=== PATIENT | female | born 1980 | race Caucasian/White ===

== ENCOUNTER 2016-07-21 13:35 | Inpatient (IN) | payer OTHER ==
[2016-07-21 13:35] VITALS: BMI 35.7
[2016-07-21 14:37] LABS: RBC URINE 2 /hpf (0-3); URINE BILIRUBIN NEGATIVE (NEGATIVE); URINE BLOOD MODERATE (NEGATIVE); URINE COLOR YELLOW (YELLOW); URINE GLUCOSE (UA) NEG (Normal); URINE KETONE NEGATIVE (NEGATIVE); URINE LEUKOCYTE ESTERASE NEG Leu/uL (Negative); URINE PROTEIN NEGATIVE (NEGATIVE); URINE UROBILINOGEN 0.2-1.0 mg/dL (0.2-1.0); WBC URINE 1 /hpf (0-5)
--- NOTE | 2016-07-21 14:58 | CT ---
PROCEDURE: CT HEAD WITHOUT CONTRAST. HISTORY: Fever, h/o pseudotumor cerebri COMPARISON: 07/29/2007 TECHNIQUE: Axial computed tomography images were obtained through the head/brain without intravenous contrast. Radiation dose: Total exam DLP = 791.76 mGy-cm. This CT exam was performed using one or more of the following dose reduction techniques: Automated exposure control, adjustment of the mA and/or kV according to patient size, and/or use of iterative reconstruction technique. FINDINGS: HEMORRHAGE: No intracranial hemorrhage. BRAIN: No mass effect or edema. Mild bilateral frontal atrophy, slightly greater than expected for patient age. No evidence of acute infarct. VENTRICLES: Unremarkable. No hydrocephalus. CALVARIUM: Unremarkable. PARANASAL SINUSES: Unremarkable as visualized. No significant inflammatory changes. MASTOID AIR CELLS: Unremarkable as visualized. No inflammatory changes. OTHER FINDINGS: None. IMPRESSION: No intracranial mass, hemorrhage or evidence of acute infarct. Mild bilateral frontal atrophy, slightly greater than expected for patient age. Otherwise unremarkable examination.
--- NOTE | 2016-07-21 14:59 | ED PDOC ---
HPI: CCC, URI, Sore Throat Time Seen by Provider: 07/21/16 14:06 Chief Complaint (Nursing): Flu-like Symptoms Chief Complaint (Provider): Flu-like Symptoms History Per: Patient History/Exam Limitations: no limitations Onset/Duration Of Symptoms: Days Current Symptoms Are (Timing): Still Present Location Of Pain: Diffuse Myalgias, Headache Sick Contacts (Context): None Associated Symptoms: Vomiting Severity: Mild Additional Complaint(s): Patient is a 35 year old female who presents to ED for evaluation of vomiting, runny nose, diffuse malagia and fever for 2 days. 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 Denies photophobia, neck stiffness, rash or vision changes. Past Medical History Reviewed: Historical Data, Nursing Documentation, Vital Signs Vital Signs: Last Vital Signs Temp 100.9 F H 07/21/16 20:13 Pulse 85 07/21/16 19:06 Resp 16 07/21/16 19:06 BP 126/87 07/21/16 19:06 Pulse Ox 100 07/21/16 19:52 - Medical History PMH: Anxiety, Asthma (RARELY USES INHALER), Depression, Migraine Denies: Chronic Kidney Disease - Surgical History Surgical History: Tonsillectomy - Family History Family History: States: Diabetes, Hypertension - Living Arrangements Living Arrangements: With Family - Social History Current smoker - smoking cessation education provided: No Alcohol: None Drugs: Denies - Home Medications Home Medications: Ambulatory Orders Medication Instructions Recorded Spironolactone [Aldactone] 12.5 mg PO BID 07/21/16 - Allergies Allergies/Adverse Reactions: Allergies Allergy/AdvReac Type Severity Reaction Status Date / Time erythromycin base Allergy Severe ANAPHYLAXIS Verified 04/23/15 09:42 Review of Systems ROS Statement: Except As Marked, All Systems Reviewed And Found Negative Constitutional: Positive for: Fever, Chills. Negative for: Weakness Eyes: Negative for: Vision Change ENT: Positive for: Nose Discharge Cardiovascular: Negative for: Chest Pain, Palpitations Respiratory: Positive for: Cough. Negative for: Shortness of Breath Gastrointestinal: Positive for: Vomiting Skin: Negative for: Rash Neurological: Positive for: Headache. Negative for: Weakness, Numbness Physical Exam - Reviewed Nursing Documentation Reviewed: Yes Vital Signs Reviewed: Yes - Physical Exam Appears: Positive for: Non-toxic, No Acute Distress Skin: Positive for: Normal Color, Warm. Negative for: Rash Eye Exam: Positive for: Normal appearance, PERRL ENT: Negative for: Nasal Congestion, Pharyngeal Erythema, Tonsillar Exudate Neck: Positive for: Normal, Painless ROM Cardiovascular/Chest: Positive for: Regular Rate, Rhythm. Negative for: Murmur Respiratory: Positive for: Normal Breath Sounds. Negative for: Respiratory Distress Gastrointestinal/Abdominal: Positive for: Normal Exam. Negative for: Tenderness Back: Positive for: Normal Inspection Extremity: Positive for: Normal ROM. Negative for: Pedal Edema Neurologic/Psych: Positive for: Alert, Oriented. Negative for: Motor/Sensory Deficits - Laboratory Results Result Diagrams: 07/21/16 14:45 07/21/16 14:45 - ECG O2 Sat by Pulse Oximetry: 100 (RA) Pulse Ox Interpretation: Normal - Radiology X-Ray: Read By Radiologist X-Ray Interpretation: No Acute Disease - CT Scan/US CT head Other Rad Studies (CT/US): Radiology Report Reviewed (No intracranial mass, hemorrhage or evidence of acute infarct. Mild bilateral frontal atrophy, slightly greater than expected for patient age. Otherwise unremarkable examination.) Medical Decision Making Medical Decision Making: Time: 1405 Initial impression: Viral illness Initial plan: -- VBG -- CT-head -- CMP -- Urine dip -- CBC -- PT/PTT -- CXR -- Morphine and Zofran -- Blood culture -- Flu swab -- U/A Time: 1500 Patient is being placed into ED observation pending labs and blood work. See ED obs note for further updates. 21:35 Dr. Rodriguez contacted with CSF results, no privileges at [facility] but can call for consult. Scribe Attestation: Documented by Erika Mckenna acting as a scribe for Xiomy De Leon MD MD Scribe Attestation: All medical record entries made by the Scribe were at my direction and personally dictated by me. I have reviewed the chart and agree that the record accurately reflects my personal performance of the history, physical exam, medical decision making, and the department course for this patient. I have also personally directed, reviewed, and agree with the discharge instructions and disposition. ED OBSERVATION Date of observation admission: 07/21/16 Time of observation admission: 15:00 - Observation admission statement Patient is being placed in observation because:: Need for serial examination to determine stability for discharge. - Goals of Observation Goals of observation are:: resolution of symptoms. Disposition - Clinical Impression Clinical Impression: Intractable headache, Fever - Patient ED Disposition Is Patient to be Admitted: Yes - Disposition Disposition Time: 19:47 Condition: STABLE - Pt Status Changed To: Hospital Disposition Of: Inpatient - Admit Certification Admit to Inpatient:: After my assessment, the patient will require hospitalization for at least two midnights. This is because of the severity of symptoms shown, intensity of services needed, and/or the medical risk in this patient being treated as an outpatient. - POA Present On Arrival: None Lumbar Puncture - Time Out Time Out: Patient ID confirmed, Sterile procedures obs. - Consent obtained Consent obtained: Written - Performed by Performed by: Mid-level Provider - Indications Indication(s): Suspected menigitis - Contraindications Contraindications: None - Patient Position Patient position: Sitting - Local Anesthetic Location: L4/L5 Opening pressure cm CSF: 29 cm - Fluid Appearance Fluid Appearance: Clear Amount Drained ml: 8 - Post-procedure Post-procedure: No leak/bld from LP site - CSF Studies CSF Studies: Cell count/diff, Glucose, Protein, LDH, Gram stain, culture/ sensitivity, Antigens - Complications Complications: None - Patient tolerated procedure Patient tolerated procedure: Well
[2016-07-21 15:03] LABS: VENOUS BLOOD GAS MODE RA; VENOUS BLOOD GAS PCO2 43 mmHg (40-60); VENOUS BLOOD PH 7.38 (7.32-7.43)
[2016-07-21 15:10] LABS: BASO # 0.1 K/uL (0.0-0.2); BASO % 0.7 % (0.0-2.0); EOS # 0.3 K/uL (0.0-0.7); EOS % 2.7 % (0.0-4.0); HEMATOCRIT 42.9 % (34.0-47.0); LYMPH # 1.1 K/uL (1.0-4.3); LYMPH % 9.3 % (20.0-40.0); MEAN CELL VOLUME 84.6 fl (81.0-99.0); MEAN CORPUSCULAR HEMOGLOBIN 28.5 pg (27.0-31.0); MEAN CORPUSCULAR HGB CONC 33.7 g/dL (33.0-37.0); MEAN PLATELET VOLUME 8.8 fl (7.2-11.7); MONO % 8.3 % (0.0-10.0); NEUT # 9.4 K/uL (1.8-7.0); NRBC % 0.1 % (0.0-0.0); PLATELET COUNT 265 K/uL (130-400); RED CELL DISTRIBUTION WIDTH 12.6 % (11.5-14.5); WHITE BLOOD COUNT 11.9 K/uL (4.8-10.8)
[2016-07-21 15:15] LABS: ALB/GLOB RATIO 1.5 (1.0-2.1); ALKALINE PHOSPHATASE 66 U/L (38-126); ALT/SGPT 38 U/L (9-52); AST/SGOT 25 U/L (14-36); BILIRUBIN,TOTAL 0.5 mg/dl (0.2-1.3); BLOOD UREA NITROGEN 12 mg/dl (7-17); CALCIUM 9.1 mg/dL (8.4-10.2); CARBON DIOXIDE 23 mmol/L (22-30); CHLORIDE 104 mmol/L (98-107); GFR AFRICAN-AMERICAN > 60; GLUCOSE,RANDOM 90 mg/dL (65-105); POTASSIUM 4.1 MMOL/L (3.6-5.0); SODIUM 139 mmol/l (132-148); TOTAL PROTEIN 8.1 G/DL (6.3-8.2)
--- NOTE | 2016-07-21 15:18 | RAD ---
HISTORY: Fever COMPARISON: 08/28/2011 TECHNIQUE: Chest PA and lateral FINDINGS: LUNGS: No active pulmonary disease. PLEURA: No significant pleural effusion identified. No pneumothorax apparent. CARDIOVASCULAR: Normal. OSSEOUS STRUCTURES: No significant abnormalities. VISUALIZED UPPER ABDOMEN: Normal. OTHER FINDINGS: None. IMPRESSION: No active disease.
[2016-07-21 15:29] LABS: PARTIAL THROMBOPLASTIN TIME 29.6 Seconds (25.6-37.1)
[2016-07-21 15:37] LABS: EOSINOPHIL 2 % (0-7); NEUTROPHIL 77 % (42-75); REACTIVE LYMPHOCYTES 1 % (0-0); TOTAL CELLS COUNTED 100
[2016-07-21] MEDS ORDERED: Lidocaine 1% Inj (20ml) ONE (16:12)
[2016-07-21] MEDS ORDERED: Lidocaine 1% Inj (20ml) IJ STA (16:17)
[2016-07-21] MEDS ORDERED: Vancomycin 1 g Inj ONE (16:49)
[2016-07-21] MEDS ORDERED: cefTRIAXone (Rocephin) 1 gm Inj ONE (16:49)
[2016-07-21] MEDS ORDERED: DiphenhydrAMINE 50 mg/ml Inj IVP STA (17:19)
[2016-07-21 17:46] LABS: FLUID TYPE SPINAL FLUID
[2016-07-21 18:53] LABS: CSF COMMENT CELLS NOT SEEN.; CSF TOTAL COUNT 0 (0-0)
[2016-07-21] MEDS: cefTRIAXone 2 GM in Sodium Chloride 0.9% 100 ML IVPB SCH (20:10)
[2016-07-22 00:53] LABS: RBC URINE 3 /hpf (0-3); URINE BACTERIA RARE (<OCC); URINE BILIRUBIN NEGATIVE (NEGATIVE); URINE COLOR YELLOW (YELLOW); URINE GLUCOSE (UA) NEG (Normal); URINE KETONE NEGATIVE (NEGATIVE); URINE LEUKOCYTE ESTERASE NEG Leu/uL (Negative); URINE PROTEIN NEGATIVE (NEGATIVE); URINE UROBILINOGEN 0.2-1.0 mg/dL (0.2-1.0); WBC URINE 3 /hpf (0-5)
[2016-07-22 00:56] LABS: URINE BLOOD TRACE (NEGATIVE)
[2016-07-22 07:21] LABS: HEMATOCRIT 41.5 % (34.0-47.0); MEAN CELL VOLUME 85.8 fl (81.0-99.0); MEAN CORPUSCULAR HEMOGLOBIN 28.7 pg (27.0-31.0); MEAN CORPUSCULAR HGB CONC 33.4 g/dL (33.0-37.0); RED CELL DISTRIBUTION WIDTH 12.9 % (11.5-14.5); WHITE BLOOD COUNT 6.8 K/uL (4.8-10.8)
[2016-07-22 07:29] LABS: ALB/GLOB RATIO 1.3 (1.0-2.1); ALKALINE PHOSPHATASE 53 U/L (38-126); ALT/SGPT 36 U/L (9-52); AST/SGOT 23 U/L (14-36); BILIRUBIN,TOTAL 0.4 mg/dl (0.2-1.3); BLOOD UREA NITROGEN 10 mg/dl (7-17); CALCIUM 8.6 mg/dL (8.4-10.2); CARBON DIOXIDE 25 mmol/L (22-30); CHLORIDE 103 mmol/L (98-107); GFR AFRICAN-AMERICAN > 60; GLUCOSE,RANDOM 90 mg/dL (65-105); POTASSIUM 3.8 MMOL/L (3.6-5.0); SODIUM 140 mmol/l (132-148); TOTAL PROTEIN 7.4 G/DL (6.3-8.2)
--- NOTE | 2016-07-22 09:19 | CP.PCM.HP ---
History of Present Illness - History of Present Illness History of Present Illness: Patient is a 35 year old female who presents to ED for evaluation of vomiting, runny nose, diffuse malagia and fever for 2 days. 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 Denies photophobia, neck stiffness, rash or vision changes. Present on Admission - Present on Admission Any Indicators Present on Admission: Yes Past Patient History - Infectious Disease Hx of Infectious Diseases: None (pseudotumor cerebri) - Past Medical History & Family History Past Medical History?: Yes - Past Social History Smoking Status: Never Smoked - CARDIAC Hx Cardiac Disorders: No - PULMONARY Hx Respiratory Disorders: Yes Hx Asthma: Yes (RARELY USES INHALER) - NEUROLOGICAL Hx Neurological Disorder: Yes Hx Migraine: Yes Other/Comment: Pseudotumor cerebri - HEENT Hx HEENT Problems: No - RENAL Hx Chronic Kidney Disease: No - ENDOCRINE/METABOLIC Hx Endocrine Disorders: No - HEMATOLOGICAL/ONCOLOGICAL Hx Blood Disorders: No - INTEGUMENTARY Hx Dermatological Problems: Yes Hx Psoriasis: Yes - MUSCULOSKELETAL/RHEUMATOLOGICAL Hx Musculoskeletal Disorders: Yes Hx Falls: Yes - GASTROINTESTINAL Hx Gastrointestinal Disorders: Yes Hx Vomiting: Yes - GENITOURINARY/GYNECOLOGICAL Hx Genitourinary Disorders: Yes Hx Reproductive Disorders: Yes (OVARIAN CYST/PELVIC PAIN) Hx Urinary Tract Infection: Yes - PSYCHIATRIC Hx Psychophysiologic Disorder: Yes Hx Anxiety: Yes Hx Depression: Yes Hx Substance Use: No - SURGICAL HISTORY Hx Surgeries: Yes Hx Hysterectomy: Yes Hx Tonsillectomy: Yes Other/Comment: adenoids and spinal tap - ANESTHESIA Hx Anesthesia: Yes Hx Anesthesia Reactions: No Hx Malignant Hyperthermia: No Meds Allergies/Adverse Reactions: Allergies Allergy/AdvReac Type Severity Reaction Status Date / Time erythromycin base Allergy Severe ANAPHYLAXIS Verified 04/23/15 09:42 Physical Exam - Constitutional Appears: Well, Non-toxic - Head Exam Head Exam: ATRAUMATIC, NORMAL INSPECTION - Eye Exam Eye Exam: EOMI Pupil Exam: NORMAL ACCOMODATION - ENT Exam ENT Exam: Mucous Membranes Moist - Neck Exam Neck exam: Positive for: Normal Inspection - Respiratory Exam Respiratory Exam: Clear to Auscultation Bilateral, NORMAL BREATHING PATTERN - Cardiovascular Exam Cardiovascular Exam: REGULAR RHYTHM - GI/Abdominal Exam GI & Abdominal Exam: Normal Bowel Sounds - Extremities Exam Extremities exam: Positive for: normal inspection Results - Vital Signs Recent Vital Signs: Last Vital Signs Temp 99.5 F 07/22/16 08:49 Pulse 68 07/22/16 08:49 Resp 22 07/22/16 08:49 BP 129/81 07/22/16 08:49 Pulse Ox 97 07/22/16 08:49 - Labs Result Diagrams: 07/22/16 05:50 07/22/16 05:50 Labs: Laboratory Results - last 24 hr 07/22/16 07/22/16 07/22/16 00:22 05:50 05:50 WBC 6.8 RBC 4.84 Hgb 13.9 Hct 41.5 MCV 85.8 MCH 28.7 MCHC 33.4 RDW 12.9 Plt Count 227 Sodium 140 Potassium 3.8 Chloride 103 Carbon Dioxide 25 Anion Gap 16 BUN 10 Creatinine 0.9 Est GFR ( Amer) > 60 Est GFR (Non-Af Amer) > 60 Random Glucose 90 Calcium 8.6 Total Bilirubin 0.4 AST 23 ALT 36 Alkaline Phosphatase 53 Total Protein 7.4 Albumin 4.2 Globulin 3.1 Albumin/Globulin Ratio 1.3 Urine Color Yellow Urine Clarity Slighty-cloudy Urine pH 6.0 Ur Specific [place] 1.015 Urine Protein Negative Urine Glucose (UA) Neg Urine Ketones Negative Urine Blood Trace H Urine Nitrate Negative Urine Bilirubin Negative Urine Urobilinogen 0.2-1.0 Ur Leukocyte Esterase Neg Urine RBC (Auto) 3 Urine Microscopic WBC 3 Ur Squamous Epith Cells 9 H Urine Bacteria Rare Assessment & Plan - Assessment and Plan (Free Text) Assessment: Fever/URI pt on vanc/rocephin WBC improving, no fever at this time cont meds f/u cultures and monitor labs. 2. intractable headache s/p LP cont pain management CT head unremarkable Neuro on consult
[2016-07-22] MEDS ORDERED: Valproate 500 MG in Sodium Chloride 0.9% 100 ML IVPB ONE (10:43)
[2016-07-22] MEDS ORDERED: SODIUM CHLORIDE 0.9% IV ONE (10:44)
[2016-07-22] MEDS ORDERED: METHYLPREDNISOLONE IV ONE (10:44)
[2016-07-22] MEDS ORDERED: DiphenhydrAMINE 50 mg/ml Inj IVP STA (10:47)
--- NOTE | 2016-07-22 11:14 | CON ---
DATE: 07/22/2016 CHIEF COMPLAINT: Headaches. HISTORY OF PRESENT ILLNESS: The patient is a 35-year-old woman who has history of migraine headaches , history of asthma, anxiety, depression, who came to the hospital for vomiting, runny nose, diffuse myalgias and fever for 2 days. She was started on antibiotics, had been having diffuse pressure head aches associated with photophobia and phonophobia without any neck stiffness and occasional scintilla ting scotomas and diffuse pressure type. She has been having chronic migraines and has had history o f questionable pseudotumor cerebri, was being treated with spirolactone. She has taken daily Fiorice t and opiates in the past which has stopped, but she has been taking every 4 hours, Motrin 800 for th e past month and a half or so. Headaches are diffuse pressure type and gets occasionally nauseous. CT head showed no acute intracranial abnormality. She is status post lumbar puncture last night whic h is unremarkable for any infection. Her labs are unremarkable as well in terms of CBC, CMP. Curren tly, she is moving all extremities, walking around without any difficulty. PAST MEDICAL HISTORY: Migraine, anxiety, asthma, depression and questionable pseudotumor cerebri. REVIEW OF SYSTEMS: A 14-point review of systems negative except for the HPI. MEDICATIONS: Reviewed via nurse's reconciliation sheet. SOCIAL HISTORY: No illicit drug use, smoking, or ETOH abuse. FAMILY HISTORY: Noncontributory. ALLERGIES: ALLERGIC TO ERYTHROMYCIN AND GETS SEVERE ANAPHYLAXIS. PHYSICAL EXAMINATION: VITAL SIGNS: Temperature of 99.5, pulse rate of 60, blood pressure 129/81, respiratory rate of 22, o xygen saturation 98% via room air. GENERAL: The patient is sitting up in bed in no acute distress. HEENT: Atraumatic, normocephalic. PERRLA. Extraocular muscles intact. NECK: Supple, no JVD, no adenopathy noted. LUNGS: Clear to auscultation. No adventitious sounds. HEART: S1, S2, normal rate and rhythm. No murmurs, rubs, or gallops. ABDOMEN: Soft, nontender, nondistended. Bowel sounds are present. EXTREMITIES: No clubbing, no cyanosis. Peripheral pulses are 2+ felt bilaterally. NEUROLOGIC: The patient is alert, oriented to person, place, month and year. Speech is fluent witho ut any errors. Cranial nerves II-XII are intact. MOTOR: Moves all extremities equally. Toes are downgoing bilaterally. SENSORY: Light touch, pinprick, proprioception, vibration intact. DTRs are 2+ throughout. COORDINATION: [id number] intact. GAIT: Gait is normal. LABORATORY DATA: Sodium is 140, potassium 3.8, chloride 103, carbon dioxide 25, BUN 10, creatinine 0 .9, random glucose 90. ASSESSMENT AND PLAN: A 35-year-old woman with history of anxiety, depression, history of migraine he adaches, history of questionable pseudotumor cerebri, who was having fever, myalgias for the past few weeks, sounds like flu-like symptoms, who has worsening headaches over the past month. At this time , I feel like her headaches are more of a questionable pseudotumor cerebri superimposed on underlying severe migraine headaches and a rebound phenomenon from taking chronic nonsteroidal antiinflammatory drugs. PLAN: 1. Recommend her to stop all NSAIDs as well as opiates or Fioricet daily in order to reset her syste m. 2. I told her to stop the spironolactone that she is taking by ____ and to start Diamox 250 mg p .o. b.i.d. In addition, we will start her on Topamax 50 mg p.o. at bedtime for headache prevention. 3. We will give her 1 dose of IV Depacon 500 mg slowly infused over 60 minutes along with ____ mg IV Solu-Medrol and 4 mg of Zofran with 50 mg of Benadryl to help break the headache. 4. She can follow up in the office for further headache management and we will place her on Co-Q10 a t 400 mg, riboflavin 400 mg daily and turmeric 1000 mg daily for headache prevention as well. At thi s time, she is clinically stable. Marques Francis MD cc: [phone] TT: 07/22/2016 11:14:13 Confirmation # [id number] Dictation # [id number] tn
[2016-07-23 00:22] VITALS: RESP 18; TEMP 98.3
[2016-07-23 07:40] VITALS: BP 109/74; PULSE 80; O2SAT 97
[2016-07-23] MEDS: cefTRIAXone 2 GM in Sodium Chloride 0.9% 100 ML IVPB SCH (09:43)
--- NOTE | 2016-07-23 11:17 | CP.PCM.DIS ---
Provider - Provider Date of Admission: 07/21/16 19:47 Attending physician: Olayinka Sheets MD Primary care physician: olayinka sheets MD Consults: soniya nunez MD (neuro) Time Spent in preparation of Discharge (in minutes): 30 Diagnosis - Discharge Diagnosis (1) Intractable headache Status: Acute Hospital Course - Lab Results Lab Results: Micro Results 07/22/16 11:00 Urine,Clean Catch Urine Culture - Final No Growth (<1,000 CFU/ML) Most Recent Lab Values WBC 6.8 K/uL (4.8-10.8) 07/22/16 05:50 RBC 4.84 Mil/uL (3.80-5.20) 07/22/16 05:50 Hgb 13.9 g/dL (12.0-16.0) 07/22/16 05:50 Hct 41.5 % (34.0-47.0) 07/22/16 05:50 MCV 85.8 fl (81.0-99.0) 07/22/16 05:50 MCH 28.7 pg (27.0-31.0) 07/22/16 05:50 MCHC 33.4 g/dL (33.0-37.0) 07/22/16 05:50 RDW 12.9 % (11.5-14.5) 07/22/16 05:50 Plt Count 227 K/uL (130-400) 07/22/16 05:50 MPV 8.8 fl (7.2-11.7) 07/21/16 14:45 Neut % (Auto) 79.0 % (50.0-75.0) H 07/21/16 14:45 Lymph % (Auto) 9.3 % (20.0-40.0) L 07/21/16 14:45 Millard % (Auto) 8.3 % (0.0-10.0) 07/21/16 14:45 Eos % (Auto) 2.7 % (0.0-4.0) 07/21/16 14:45 Baso % (Auto) 0.7 % (0.0-2.0) 07/21/16 14:45 Neut # 9.4 K/uL (1.8-7.0) H 07/21/16 14:45 Lymph # 1.1 K/uL (1.0-4.3) 07/21/16 14:45 Millard # 1.0 K/uL (0.0-0.8) H 07/21/16 14:45 Eos # 0.3 K/uL (0.0-0.7) 07/21/16 14:45 Baso # 0.1 K/uL (0.0-0.2) 07/21/16 14:45 Neutrophils % (Manual) 77 % (42-75) H 07/21/16 14:45 Band Neutrophils % 1 % (0-2) 07/21/16 14:45 Lymphocytes % (Manual) 10 % (20-50) L 07/21/16 14:45 Reactive Lymphs % 1 % (0-0) H 07/21/16 14:45 Monocytes % (Manual) 9 % (0-10) 07/21/16 14:45 Eosinophils % (Manual) 2 % (0-7) 07/21/16 14:45 Platelet Estimate Normal (NORMAL) 07/21/16 14:45 RBC Morphology Normal (NORMAL) 07/21/16 14:45 PT 11.6 Seconds (9.8-13.1) 07/21/16 14:45 INR 1.0 (0.9-1.2) 07/21/16 14:45 APTT 29.6 Seconds (25.6-37.1) 07/21/16 14:45 pO2 27 mm/Hg (30-55) L 07/21/16 14:44 VBG pH 7.38 (7.32-7.43) 07/21/16 14:44 VBG pCO2 43 mmHg (40-60) 07/21/16 14:44 VBG HCO3 23.4 mmol/L 07/21/16 14:44 VBG Total CO2 26.7 mmol/L (22-28) 07/21/16 14:44 VBG O2 Sat (Calc) 53.3 % (40-65) 07/21/16 14:44 VBG Base Excess 0.0 mmol/L (0.0-2.0) 07/21/16 14:44 VBG Potassium 4.1 mmol/L (3.6-5.2) 07/21/16 14:44 Sodium 137.0 mmol/L (132-148) 07/21/16 14:44 Chloride 105.0 mmol/L (98-107) 07/21/16 14:44 Glucose 90 mg/dL (65-105) 07/21/16 14:44 Lactate 1.3 mmol/L (0.7-2.1) 07/21/16 14:44 FiO2 21.0 % 07/21/16 14:44 Sodium 140 mmol/l (132-148) 07/22/16 05:50 Potassium 3.8 MMOL/L (3.6-5.0) 07/22/16 05:50 Chloride 103 mmol/L (98-107) 07/22/16 05:50 Carbon Dioxide 25 mmol/L (22-30) 07/22/16 05:50 Anion Gap 16 (10-20) 07/22/16 05:50 BUN 10 mg/dl (7-17) 07/22/16 05:50 Creatinine 0.9 mg/dL (0.7-1.2) 07/22/16 05:50 Est GFR ( Amer) > 60 07/22/16 05:50 Est GFR (Non-Af Amer) > 60 07/22/16 05:50 Random Glucose 90 mg/dL (65-105) 07/22/16 05:50 Calcium 8.6 mg/dL (8.4-10.2) 07/22/16 05:50 Total Bilirubin 0.4 mg/dl (0.2-1.3) 07/22/16 05:50 AST 23 U/L (14-36) 07/22/16 05:50 ALT 36 U/L (9-52) 07/22/16 05:50 Alkaline Phosphatase 53 U/L (38-126) 07/22/16 05:50 Total Protein 7.4 G/DL (6.3-8.2) 07/22/16 05:50 Albumin 4.2 g/dL (3.5-5.0) 07/22/16 05:50 Globulin 3.1 gm/dL (2.2-3.9) 07/22/16 05:50 Albumin/Globulin Ratio 1.3 (1.0-2.1) 07/22/16 05:50 Venous Blood Potassium 4.1 mmol/L (3.6-5.2) 07/21/16 14:44 Urine Color Yellow (YELLOW) 07/22/16 00:22 Urine Clarity Slighty-cloudy (Clear) 07/22/16 00:22 Urine pH 6.0 (5.0-8.0) 07/22/16 00:22 Ur Specific [place] 1.015 (1.003-1.030) 07/22/16 00:22 Urine Protein Negative mg/dL (NEGATIVE) 07/22/16 00:22 Urine Glucose (UA) Neg mg/dL (Normal) 07/22/16 00:22 Urine Ketones Negative mg/dL (NEGATIVE) 07/22/16 00:22 Urine Blood Trace (NEGATIVE) H 07/22/16 00:22 Urine Nitrate Negative (NEGATIVE) 07/22/16 00:22 Urine Bilirubin Negative (NEGATIVE) 07/22/16 00:22 Urine Urobilinogen 0.2-1.0 mg/dL (0.2-1.0) 07/22/16 00:22 Ur Leukocyte Esterase Neg [place]/uL (Negative) 07/22/16 00:22 Urine RBC (Auto) 3 /hpf (0-3) 07/22/16 00:22 Urine Microscopic WBC 3 /hpf (0-5) 07/22/16 00:22 Ur Squamous Epith Cells 9 /hpf (0-5) H 07/22/16 00:22 Urine Bacteria Rare (<OCC) 07/22/16 00:22 Fluid Type Spinal fluid 07/21/16 17:44 CSF Volume 2 mL (0-1) H 07/21/16 17:44 CSF Appearance Clear/colorless (CLEAR) 07/21/16 17:44 CSF WBC 0.0 /mm3 (0.0-5.0) 07/21/16 17:44 CSF RBC 0.0 /mm3 (0.0-0.0) 07/21/16 17:44 CSF Total Cell Counted 0 (0-0) 07/21/16 17:44 CSF Monos/Macrophages 0 % (0-0) 07/21/16 17:44 CSF Comment Cells not seen. 07/21/16 17:44 CSF Glucose 54 mg/dL (40-70) 07/21/16 17:44 CSF Total Protein 39.0 mg/dL (12-60) 07/21/16 17:44 Influenza Typ A,B (EIA) Negative for flu a/b (NEGATIVE) 07/21/16 14:45 - Hospital Course Hospital Course: stable, pt improving Discharge Exam - Head Exam Head Exam: ATRAUMATIC, NORMAL INSPECTION - Eye Exam Eye Exam: EOMI Pupil Exam: PERRL - ENT Exam ENT Exam: Mucous Membranes Moist - Neck Exam Neck exam: Tenderness - Respiratory Exam Respiratory Exam: Clear to PA & Lateral, UNREMARKABLE - Cardiovascular Exam Cardiovascular Exam: REGULAR RHYTHM - GI/Abdominal Exam GI & Abdominal Exam: Normal Bowel Sounds - Extremities Exam Extremities exam: full ROM, normal inspection Discharge Plan - Follow Up Plan Condition: STABLE Disposition: HOME/ ROUTINE
[2016-07-24 13:14] LABS: TOTAL PROTEIN, CSF 25 mg/dL (15-45)
[2016-07-24 16:28] LABS: HSV 2 DNA Not Detected (Not Detected); SPECIMEN SOURCE CSF
[2016-07-26 00:53] LABS: CSF ALBUMIN 55.4 % (51.9-67.8); CSF ALPHA-1-GLOBULIN 3.4 % (1.8-6.5); CSF ALPHA-2-GLOBULIN 4.7 % (4.6-10.8); CSF BETA GLOBULIN 13.9 % (7.8-18.2); CSF GAMMA GLOBULIN 15.2 % (4.8-17.6); CSF PRE-ALBUMIN 7.4 % (1.3-6.9)
--- NOTE | 2016-07-26 13:18 | PQF GENQUE ---
Dr. Martinez pt was admitted with fever and headache. Consult dated 07/22 documented " At this time, I feel like her headaches are more of a questionable pseudotumor cerebri superimposed on underlying severe migraine headaches and a rebound phenomenon from taking chronic nonsteroidal antiinflammatory drugs. STop NSAIDS see notes.''After study what is the principal diagnosis for this case? This form is a permanent part of the medical record Clarification of your documentation is requested to better reflect the severity of illness and intensity of treatment of your patient. Indicators present [] Specify: [] [] Specify: [] [] Specify: [] [] Specify: [] Location in the medical record that reflects the above clinical findings: [dc summary and neuro note] Treatment Provided: [] PHYSICIAN'S RESPONSE Based on your medical judgment of the clinical indicators outlined above please clarify the following: x[] Practitioner response per dr noel dc summary and dr nunez note acute on chronic migraine [] If unable to determine, please check the box, sign and date. Present On Admission (POA) Indicator: [] Present at the time of admission [] Not present at the time of admission [] Clinically Undetermined In responding to this query, please exercise your independent professional judgment. The fact that a question is asked does not imply that any particular answer is desired or expected. Thank you for your clarification on this documentation. If you have any questions please call:[ ] * Thank you, [ ]Mary Osullivan superintendent recreation [facility]
== END 2016-07-23 13:44 | disposition home or self-care (01) | DRG 891 ==
LOC: H.ER 13:35 → H.EROBSV 15:00 → OBSVTOIN 19:47 → H.ERHOLD 20:16 → H.MEDSURG1 22:13
PROVIDERS: ADMIT Family Medicine; ATTEND Family Medicine
PROC: 009U3ZX Drainage of Spinal Canal, Percutaneous Approach, Diagnostic (ICD-10-PCS; principal; 2016-07-21)
DX: G43.909 Migraine, unspecified, not intractable, without status migrainosus (principal); F32.9 Major depressive disorder, single episode, unspecified; F41.9 Anxiety disorder, unspecified; J45.909 Unspecified asthma, uncomplicated; Z88.1 Allergy status to other antibiotic agents

== ENCOUNTER 2017-01-30 21:41 | Inpatient (IN) | payer OTHER ==
[2017-01-30 21:41] VITALS: BMI 35.7
[2017-01-30] MEDS ORDERED: Albuterol-Ipratrop 3 mg / 0.5 (3 ml) UD INH STA ×3 (22:16→23:30)
[2017-01-30] MEDS ORDERED: Promethazine/Cod 6.25mg-10mg/5ml Syr UD PO STA (22:20)
[2017-01-30 22:40] LABS: BASO # 0.1 K/uL (0.0-0.2); BASO % 0.9 % (0.0-2.0); EOS # 0.8 K/uL (0.0-0.7); EOS % 5.3 % (0.0-4.0); LYMPH # 3.1 K/uL (1.0-4.3); LYMPH % 21.2 % (20.0-40.0); MEAN CELL VOLUME 84.8 fl (81.0-99.0); MEAN CORPUSCULAR HEMOGLOBIN 28.3 pg (27.0-31.0); MEAN CORPUSCULAR HGB CONC 33.4 g/dL (33.0-37.0); MEAN PLATELET VOLUME 8.5 fl (7.2-11.7); MONO # 1.2 K/uL (0.0-0.8); MONO % 8.1 % (0.0-10.0); NEUT # 9.6 K/uL (1.8-7.0); NEUT % 64.5 % (50.0-75.0); NRBC % 0.1 % (0.0-0.0); RED CELL DISTRIBUTION WIDTH 12.6 % (11.5-14.5); WHITE BLOOD COUNT 14.8 K/uL (4.8-10.8)
--- NOTE | 2017-01-30 22:40 | ED PDOC ---
HPI: SOB/CHF/COPD Time Seen by Provider: 01/30/17 21:56 Chief Complaint (Nursing): Chest Pain Chief Complaint (Provider): Shortness of Breath, Chest Pain History Per: Patient History/Exam Limitations: no limitations Onset/Duration Of Symptoms: Days (x 2 weeks) Current Symptoms Are (Timing): Still Present Additional Complaint(s): Chanell is a 36 y/o female with a history of asthma who presents to the ED c/o cough, shortness of breath, and chest tenderness for the past 2 weeks. Patient has been using home nebulizer with no relief. She denies associated fever, nausea, vomiting, or diarrhea. She describes the cough as dry and worse at night when lying down. Patient also complains of a headache. PMD: [facility] Past Medical History Reviewed: Historical Data, Nursing Documentation, Vital Signs Vital Signs: Last Vital Signs Temp 97.8 F 01/31/17 02:32 Pulse 82 01/31/17 05:25 Resp 19 01/31/17 02:32 BP 145/83 01/31/17 02:32 Pulse Ox 95 01/31/17 02:32 - Medical History PMH: Anxiety, Asthma (RARELY USES INHALER), Depression, Migraine Denies: Chronic Kidney Disease - Surgical History Surgical History: Tonsillectomy - Family History Family History: States: Diabetes, Hypertension - Social History Current smoker - smoking cessation education provided: No (second hand smoke in the home) Ex-Smoker (has not smoked in the last 12 months): No Alcohol: None Drugs: Denies - Home Medications Home Medications: Ambulatory Orders Medication Instructions Recorded Albuterol HFA [Ventolin HFA 90 2 inh INH PRN PRN 01/31/17 mcg/actuation (8 g)] Montelukast [Singulair] 10 mg PO HS 01/31/17 Salmeterol Xinafoate/Fluticaso 1 inh INH BID 01/31/17 [Advair Hfa 45-21] Topiramate [Topamax] 150 mg PO DAILY 01/31/17 - Allergies Allergies/Adverse Reactions: Allergies Allergy/AdvReac Type Severity Reaction Status Date / Time erythromycin base Allergy Severe ANAPHYLAXIS Verified 04/23/15 09:42 amoxicillin [From Augmentin] Allergy URTICARIA Verified 01/30/17 21:59 clavulanic acid Allergy URTICARIA Verified 01/30/17 21:59 [From Augmentin] Review of Systems ROS Statement: Except As Marked, All Systems Reviewed And Found Negative Constitutional: Negative for: Fever Cardiovascular: Positive for: Chest Pain (tightness) Respiratory: Positive for: Cough, Shortness of Breath Gastrointestinal: Negative for: Nausea, Vomiting, Abdominal Pain, Diarrhea Neurological: Positive for: Headache Physical Exam - Reviewed Nursing Documentation Reviewed: Yes Vital Signs Reviewed: Yes - Physical Exam Appears: Positive for: Non-toxic, Uncomfortable Head Exam: Positive for: ATRAUMATIC, NORMAL INSPECTION, NORMOCEPHALIC Skin: Positive for: Normal Color Eye Exam: Positive for: Normal appearance Cardiovascular/Chest: Positive for: Regular Rate, Rhythm. Negative for: Murmur Respiratory: Positive for: Rhonchi, Wheezing (diffuse expiratory), Respiratory Distress (mild), Other (decreased air entry) Extremity: Positive for: Normal ROM. Negative for: Pedal Edema, Deformity Neurologic/Psych: Positive for: Alert, Oriented - Laboratory Results Result Diagrams: 01/30/17 22:30 01/30/17 22:30 - ECG O2 Sat by Pulse Oximetry: 98 (RA) Pulse Ox Interpretation: Normal Medical Decision Making Medical Decision Making: Time: 22:16 Initial Impression: 36 y/o female with acute asthma exacerbation Initial Plan: --EKG --BMP --Urine --CBC --Chest XR --Duoneb --Magnesium sulfate --Phenergan/codeine --SOLU-medrol --Tylenol --Blood culture Time: 2337 Labs reviewed and shows elevated white blood cell, all else with no clinically significant abnormalities. Of note, patient states she started herself on a course of prednisone. Possibility for steroid induced leukocytosis. Patient is positive for Influenza A. Patient states her fever started 48 hours ago, patient placed on Tamiflu. Chest x-ray reviewed with no acute disease. Patient to be admitted for observation for asthma exacerbation. Family practice resident aware of case. Scribe Attestation: Documented by Zeke Yuan, acting as a scribe for Bonnie Bhatt MD Provider Scribe Attestation: All medical record entries made by the Scribe were at my direction and personally dictated by me. I have reviewed the chart and agree that the record accurately reflects my personal performance of the history, physical exam, medical decision making, and the department course for this patient. I have also personally directed, reviewed, and agree with the discharge instructions and disposition. Disposition - Clinical Impression Clinical Impression: Asthma exacerbation, Influenza - Patient ED Disposition Is Patient to be Admitted: Yes - Disposition Disposition Time: 23:00 Condition: FAIR - Pt Status Changed To: Hospital Disposition Of: Observation
[2017-01-30 22:50] LABS: BLOOD UREA NITROGEN 13 mg/dl (7-17); CALCIUM 9.4 mg/dL (8.4-10.2); CARBON DIOXIDE 25 mmol/L (22-30); CHLORIDE 107 mmol/L (98-107); GFR AFRICAN-AMERICAN > 60; GLUCOSE,RANDOM 102 mg/dL (65-105); POTASSIUM 4.1 MMOL/L (3.6-5.0); SODIUM 144 mmol/l (132-148)
[2017-01-30] MEDS ORDERED: Magnesium Sulfate 2 gm/50 ml 2 GM/50 ML BAG ONE (22:53)
[2017-01-30] MEDS: Magnesium Sulfate 2 GM in Sodium Chloride 0.9% 100 ML IV STA ×2 (23:01→23:26)
[2017-01-30] MEDS ORDERED: Magnesium Sulfate 2 gm/50 ml 2 GM/50 ML BAG IV STA (23:08)
--- NOTE | 2017-01-31 00:51 | CP.PCM.HP ---
History of Present Illness - History of Present Illness History of Present Illness: 36 YO F w/ h/o asthma, pseudotumor cerebri, migraines presents to the ER with worsening cough and SOB for the past 2 weeks. However for the past 2 days she has been worsening of her asthma and no relief from singulair, advair or nebulizers. Over the last two days she has had a dry cough and a fever. As per patient her TMAX was 104 yesterday. Has been having chest and back pain as well from coughing. States it is tender on palpation. She had a course of azithromycin at home from a previous admission, which she decided to take, and that lead to a rash breaking out over her body. She also has prednisone tablets at home, but can not recall the dosage. Denies any nausea, vomiting, diarrhea PMH: Asthma, Migraine, psuedotumor cerebri Allergies: Erthromycin, Amoxicillin, Clavulanic acid Med: Reviewed FH: DM, HTN SH: Denies smoking, alcohol or illicit drug use OBHx: LMP was on 01/02/17 PMD: Dr. Epps Next of Kin : Mother States she would not like to be resuscitated however, is unsure of DNI status, she says it depends if she does not have a good chance of surviving she would not want to be intubated. Present on Admission - Present on Admission Any Indicators Present on Admission: No Review of Systems - Review of Systems All systems: reviewed and no additional remarkable complaints except Past Patient History - Infectious Disease Hx of Infectious Diseases: None (pseudotumor cerebri) - Past Medical History & Family History Past Medical History?: Yes - Past Social History Alcohol: None Drugs: Denies - CARDIAC Hx Cardiac Disorders: No - PULMONARY Hx Asthma: Yes (RARELY USES INHALER) - NEUROLOGICAL Hx Migraine: Yes - HEENT Hx HEENT Problems: No - RENAL Hx Chronic Kidney Disease: No - ENDOCRINE/METABOLIC Hx Endocrine Disorders: No - HEMATOLOGICAL/ONCOLOGICAL Hx Blood Disorders: No - INTEGUMENTARY Hx Dermatological Problems: Yes Hx Psoriasis: Yes - MUSCULOSKELETAL/RHEUMATOLOGICAL Hx Musculoskeletal Disorders: Yes Hx Falls: Yes - GASTROINTESTINAL Hx Gastrointestinal Disorders: Yes Hx Vomiting: Yes - GENITOURINARY/GYNECOLOGICAL Hx Genitourinary Disorders: Yes Hx Urinary Tract Infection: Yes Other/Comment: Hx ovarian cyst. Hx fallopian tube rupture. Hx ectopic - PSYCHIATRIC Hx Anxiety: Yes Hx Depression: Yes - SURGICAL HISTORY Hx Tonsillectomy: Yes - ANESTHESIA Hx Anesthesia: Yes Hx Anesthesia Reactions: No Hx Malignant Hyperthermia: No Meds Allergies/Adverse Reactions: Allergies Allergy/AdvReac Type Severity Reaction Status Date / Time erythromycin base Allergy Severe ANAPHYLAXIS Verified 04/23/15 09:42 amoxicillin [From Augmentin] Allergy URTICARIA Verified 01/30/17 21:59 clavulanic acid Allergy URTICARIA Verified 01/30/17 21:59 [From Augmentin] Physical Exam - Constitutional Appears: No Acute Distress - Head Exam Head Exam: NORMAL INSPECTION - Eye Exam Eye Exam: Normal appearance - ENT Exam ENT Exam: Mucous Membranes Moist - Neck Exam Neck exam: Positive for: Normal Inspection - Respiratory Exam Respiratory Exam: Accessory Muscle Use, Wheezes Additional comments: Scattered Wheezes throughout b/l - Cardiovascular Exam Cardiovascular Exam: Tachycardia, +S1, +S2 - GI/Abdominal Exam GI & Abdominal Exam: Normal Bowel Sounds, Soft - Extremities Exam Extremities exam: Positive for: normal inspection - Neurological Exam Neurological exam: Alert, CN II-XII Intact, Oriented x3 - Skin Skin Exam: Normal Color, Warm Results - Vital Signs Recent Vital Signs: Last Vital Signs Temp 100.1 F H 01/30/17 21:53 Pulse 116 H 01/30/17 21:53 Resp 23 01/30/17 21:53 BP 161/119 H 01/30/17 21:53 Pulse Ox 98 01/31/17 00:35 - Labs Result Diagrams: 01/30/17 22:30 01/30/17 22:30 Labs: Laboratory Results - last 24 hr 01/30/17 01/30/17 01/30/17 22:30 22:30 23:25 WBC 14.8 H D RBC 5.19 Hgb 14.7 Hct 44.0 MCV 84.8 MCH 28.3 MCHC 33.4 RDW 12.6 Plt Count 284 MPV 8.5 Neut % (Auto) 64.5 Lymph % (Auto) 21.2 [place] % (Auto) 8.1 Eos % (Auto) 5.3 H Baso % (Auto) 0.9 Neut # 9.6 H Lymph # 3.1 [place] # 1.2 H Eos # 0.8 H Baso # 0.1 Sodium 144 Potassium 4.1 Chloride 107 Carbon Dioxide 25 Anion Gap 16 BUN 13 Creatinine 0.9 Est GFR ( Amer) > 60 Est GFR (Non-Af Amer) > 60 Random Glucose 102 Calcium 9.4 Influenza Typ A,B (EIA) Pos for influenza a H Assessment & Plan - Assessment and Plan (Free Text) Assessment: 1) Asthma exacerbation secondary to Influenza infection - Moderate persistent asthma - Chest X Ray: No acute disease - Elevated WBC can be secondary to steroids patient had started on her own at home - S/P 125 mg Methylprednisolone, Magnesium Sulfate x 2 - Methylprednisolone 40 mg Q12 - Singulair 10 mg HS - Advair Q12 - Albuterol Q4 neb 2) Influenza Type A - Respiratory Isolation - Oseltamivir 75 mg stat 1 dose in ER - Oseltamivir 75 mg BID x 5 days 3) DVT prophylaxis - SCD and ambulation
[2017-01-31] MEDS: Famotidine 40 MG/5 ML PO SCH ×3 (01:30→16:01)
[2017-01-31] MEDS: Sodium Chloride 0.9% 1,000 ML IV SCH ×3 (01:47→20:34)
[2017-01-31 01:54] LABS: RBC URINE 8 /hpf (0-3); URINE BACTERIA RARE (<OCC); URINE BILIRUBIN NEGATIVE (NEGATIVE); URINE BLOOD SMALL (NEGATIVE); URINE COLOR YELLOW (YELLOW); URINE GLUCOSE (UA) NEG (Normal); URINE KETONE TRACE mg/dL (NEGATIVE); URINE LEUKOCYTE ESTERASE SMALL Leu/uL (Negative); URINE PROTEIN 30 mg/dL (NEGATIVE); URINE UROBILINOGEN 0.2-1.0 mg/dL (0.2-1.0); WBC URINE 10 /hpf (0-5)
[2017-01-31] MEDS ORDERED: Albuterol HFA 90 mcg/actuation (8 g) INH PRN (02:53)
[2017-01-31] MEDS: Albuterol 0.083% Inhal Sol (2.5 mg/3 mL) UD INH SCH ×5 (05:21→19:19)
[2017-01-31] MEDS ORDERED: Albuterol 0.083% Inhal Sol (2.5 mg/3 mL) UD INH SCH (08:00)
--- NOTE | 2017-01-31 08:58 | RAD ---
HISTORY: chest pain COMPARISON: Chest radiographs 07/21/2016. FINDINGS: LUNGS: No active pulmonary disease. PLEURA: No significant pleural effusion identified, no pneumothorax apparent. CARDIOVASCULAR: Normal. OSSEOUS STRUCTURES: No significant abnormalities. VISUALIZED UPPER ABDOMEN: Normal. OTHER FINDINGS: None. IMPRESSION: No interval acute cardiopulmonary disease appreciated.
[2017-01-31] MEDS ORDERED: methylPREDNISolone 40 MG in Sodium Chloride 0.9% 50 ML IVPB SCH (09:00)
[2017-01-31] MEDS: Fluticasone-Salmeterol 250-50mcg Diskus IH SCH ×2 (09:01→21:44)
[2017-01-31] MEDS: MethylPREDNISolone 40 mg Vial IVP SCH ×2 (09:03→21:39)
[2017-01-31] MEDS: guaiFENesin DM 200 mg-20 mg/10 ml UD PO PRN ×2 (10:14→15:56)
[2017-02-01] MEDS: Albuterol 0.083% Inhal Sol (2.5 mg/3 mL) UD INH SCH ×9 (00:30→22:03)
[2017-02-01] MEDS ORDERED: Albuterol-Ipratrop 3 mg / 0.5 (3 ml) UD INH STA (00:59)
[2017-02-01] MEDS: guaiFENesin DM 200 mg-20 mg/10 ml UD PO PRN (01:07)
[2017-02-01] MEDS ORDERED: guaiFENesin-DM 600-30 mg ER Tab PO SCH ×2 (01:15→09:00)
[2017-02-01] MEDS ORDERED: Albuterol-Ipratrop 3 mg / 0.5 (3 ml) UD INH PRN (04:37)
[2017-02-01] MEDS: Sodium Chloride 0.9% 1,000 ML IV SCH ×2 (06:15→16:20)
--- NOTE | 2017-02-01 06:18 | CARD ---
APPROVED REPORT EKG Measurement Heart [id number] FL [id number] [id number] <Conclusion> Sinus rhythm with sinus arrhythmia with short FL Nonspecific ST abnormality Abnormal ECG
[2017-02-01 06:31] LABS: HEMATOCRIT 38.1 % (34.0-47.0); MEAN CELL VOLUME 84.2 fl (81.0-99.0); MEAN CORPUSCULAR HEMOGLOBIN 28.1 pg (27.0-31.0); MEAN CORPUSCULAR HGB CONC 33.4 g/dL (33.0-37.0); RED CELL DISTRIBUTION WIDTH 12.8 % (11.5-14.5)
[2017-02-01 06:41] LABS: ALB/GLOB RATIO 1.3 (1.0-2.1); ALKALINE PHOSPHATASE 52 U/L (38-126); ALT/SGPT 41 U/L (9-52); AST/SGOT 25 U/L (14-36); BILIRUBIN,TOTAL 0.5 mg/dl (0.2-1.3); BLOOD UREA NITROGEN 15 mg/dl (7-17); CALCIUM 8.9 mg/dL (8.4-10.2); CARBON DIOXIDE 22 mmol/L (22-30); CHLORIDE 112 mmol/L (98-107); GFR AFRICAN-AMERICAN > 60; GLUCOSE,RANDOM 138 mg/dL (65-105); POTASSIUM 4.3 MMOL/L (3.6-5.0); SODIUM 145 mmol/l (132-148); TOTAL PROTEIN 7.3 G/DL (6.3-8.2)
[2017-02-01] MEDS ORDERED: levoFLOXacin 750 mg in D5W 150 ML BAG IVPB SCH ×2 (07:31→09:00)
[2017-02-01] MEDS: levoFLOXacin 750 mg in D5W 750 MG/150 ML BAG IVPB SCH (08:35)
[2017-02-01] MEDS: Fluticasone-Salmeterol 250-50mcg Diskus IH SCH ×2 (08:43→21:42)
[2017-02-01] MEDS: Famotidine 40 MG/5 ML PO SCH ×2 (08:44→16:21)
--- NOTE | 2017-02-01 10:18 | CP.PCM.PN ---
Subjective - Date & Time of Evaluation Date of Evaluation: 02/01/17 Time of Evaluation: 09:50 - Subjective Subjective: Pt was seen and evaluated at bedside. Overnight, she had trouble sleeping due to persistent non-productive cough, which she states causes her to have pain. Required multiple nebulizer treatments overnight, states that symptoms have not improved. Objective - Vital Signs/Intake and Output Vital Signs (last 24 hours): Temp Pulse Resp BP Pulse Ox 98.4 F 61 20 145/84 94 L 02/01/17 07:38 02/01/17 07:38 02/01/17 07:38 02/01/17 07:38 02/01/17 07:38 - Medications Medications: Current Medications Acetaminophen (Tylenol 325mg Tab) 650 mg PO Q6 PRN PRN Reason: Fever >100.4 F Albuterol Sulfate (Albuterol 0.083% Inhal Noreen (2.5 Mg/3 Ml) Ud) 2.5 mg INH RQ3 [facility] Last Admin: 02/01/17 10:07 Dose: 2.5 mg Albuterol/Ipratropium (Duoneb 3 Mg/0.5 Mg (3 Ml) Ud) 3 ml INH RQ4 PRN PRN Reason: Shortness of Breath Famotidine (Pepcid) 20 mg PO BID [facility] Last Admin: 02/01/17 08:44 Dose: Not Given Guaifenesin/Dextromethorphan (Mucinex-Dm 600-30 Mg) 1 tab PO BID [facility] Levofloxacin/Dextrose (Levaquin 750mg) 750 mg in 150 mls @ 150 mls/hr IVPB DAILY [facility] Last Admin: 02/01/17 08:35 Dose: 150 mls/hr Ibuprofen (Motrin Tab) 600 mg PO Q8 PRN PRN Reason: Pain, Mild (1-3) Last Admin: 02/01/17 04:55 Dose: 600 mg Ketorolac Tromethamine (Toradol) 15 mg IVP Q6 PRN PRN Reason: Pain, moderate (4-7) Last Admin: 02/01/17 01:23 Dose: 15 mg Methylprednisolone (Solu-Medrol) 40 mg IVP Q12 [facility] Last Admin: 01/31/17 21:39 Dose: 40 mg Montelukast Sodium (Singulair) 10 mg PO HS [facility] Last Admin: 01/31/17 21:45 Dose: 10 mg Oseltamivir Phosphate (Tamiflu Cap) 75 mg PO BID [facility] PRN Reason: Protocol Last Admin: 02/01/17 08:44 Dose: 75 mg Fluticasone/Salmeterol (Advair Diskus 250/50) 1 puff IH Q12 [facility] Last Admin: 02/01/17 08:43 Dose: 1 puff - Labs Labs: 02/01/17 05:35 02/01/17 05:35 - Head Exam Head Exam: ATRAUMATIC, NORMAL INSPECTION, NORMOCEPHALIC - Eye Exam Eye Exam: EOMI, Normal appearance - Neck Exam Neck Exam: Full ROM - Respiratory Exam Respiratory Exam: Accessory Muscle Use, Wheezes Additional comments: scattered wheezes throughout bilaterally - Cardiovascular Exam Cardiovascular Exam: REGULAR RHYTHM, +S1, +S2 - GI/Abdominal Exam GI & Abdominal Exam: Soft, Normal Bowel Sounds - Extremities Exam Extremities Exam: Normal Inspection. absent: Calf Tenderness - Back Exam Back Exam: NORMAL INSPECTION - Neurological Exam Neurological Exam: Alert, Awake, Oriented x3 - Skin Skin Exam: Dry, Intact, Normal Color Assessment and Plan - Assessment and Plan (Free Text) Assessment: 36 yo F with pmh asthma, pseudotumor cerebri, migraines, admitted for asthma exacerbation, found to be influenza A positive. Plan: 1) Asthma exacerbation secondary to Influenza infection - Moderate persistent asthma - Levofloxacin 750mg to cover for aerobes due to worsening shortness of breath and multiple allergies to other agents; day 1 - Elevated WBC, likely due to steroids - S/P 125 mg methylprednisolone, magnesium sulfate - Methylprednisolone 40 mg Q12 - Singulair 10 mg HS - Advair Q12 - Albuterol Q2 neb 2) Influenza Type A - Respiratory Isolation - Oseltamivir 75 mg stat 1 dose in ER - Oseltamivir 75 mg BID x 5 days, today is day 2 3) DVT prophylaxis - SCD and ambulation
[2017-02-01] MEDS ORDERED: Promethazine DM 6.25 mg-15 mg/5 ml Syrup PO PRN (11:31)
[2017-02-01] MEDS: MethylPREDNISolone 40 mg Vial IVP SCH ×2 (12:17→21:43)
[2017-02-01] MEDS: Promethazine/Cod 6.25mg-10mg/5ml Syr UD PO SCH ×3 (12:50→21:42)
[2017-02-01] MEDS ORDERED: Oxycodone/Acetaminophen 5/325 mg Tab PO PRN (18:08)
[2017-02-02] MEDS: Albuterol 0.083% Inhal Sol (2.5 mg/3 mL) UD INH SCH ×8 (01:16→23:46)
[2017-02-02] MEDS: Promethazine/Cod 6.25mg-10mg/5ml Syr UD PO SCH ×4 (03:50→21:26)
[2017-02-02] MEDS: Fluticasone-Salmeterol 250-50mcg Diskus IH SCH ×2 (09:01→21:26)
[2017-02-02] MEDS: MethylPREDNISolone 40 mg Vial IVP SCH ×2 (09:02→21:27)
[2017-02-02] MEDS: Famotidine 40 MG/5 ML PO SCH (09:02)
--- NOTE | 2017-02-02 09:21 | CP.PCM.PN ---
Subjective - Date & Time of Evaluation Date of Evaluation: 02/02/17 Time of Evaluation: 07:05 - Subjective Subjective: Pt seen and evaluated at bedside; no acute events overnight. Pt reports that she had a better overnight than previous overnight, had less episodes of coughing, and feels like the tightness in her chest and shortness of breath are still present, but resolving. Started on levofloxacin yesterday. Denies headache, dizziness, palpitations, abdominal pain, leg/calf pain/ swelling. Objective - Vital Signs/Intake and Output Vital Signs (last 24 hours): Temp Pulse Resp BP Pulse Ox 97.9 F 59 L 20 156/98 H 97 02/02/17 08:08 02/02/17 08:08 02/02/17 08:08 02/02/17 08:08 02/02/17 08:08 - Medications Medications: Current Medications Acetaminophen (Tylenol 325mg Tab) 650 mg PO Q6 PRN PRN Reason: Fever >100.4 F Albuterol Sulfate (Albuterol 0.083% Inhal Noreen (2.5 Mg/3 Ml) Ud) 2.5 mg INH RQ3 [facility] Last Admin: 02/02/17 07:29 Dose: 2.5 mg Albuterol/Ipratropium (Duoneb 3 Mg/0.5 Mg (3 Ml) Ud) 3 ml INH RQ4 PRN PRN Reason: Shortness of Breath Famotidine (Pepcid) 20 mg PO BID [facility] Last Admin: 02/02/17 09:02 Dose: 20 mg Levofloxacin/Dextrose (Levaquin 750mg) 750 mg in 150 mls @ 150 mls/hr IVPB DAILY [facility] Last Admin: 02/01/17 08:35 Dose: 150 mls/hr Ibuprofen (Motrin Tab) 600 mg PO Q8 PRN PRN Reason: Pain, Mild (1-3) Last Admin: 02/02/17 09:00 Dose: 600 mg Ketorolac Tromethamine (Toradol) 15 mg IVP Q6 PRN PRN Reason: Pain, moderate (4-7) Last Admin: 02/01/17 01:23 Dose: 15 mg Methylprednisolone (Solu-Medrol) 40 mg IVP Q12 [facility] Last Admin: 02/02/17 09:02 Dose: 40 mg Montelukast Sodium (Singulair) 10 mg PO HS [facility] Last Admin: 02/01/17 21:42 Dose: 10 mg Morphine Sulfate (Morphine) 2 mg IVP Q6 PRN PRN Reason: Pain, severe (8-10) Last Admin: 02/02/17 00:27 Dose: 2 mg Ondansetron HCl (Zofran Inj) 4 mg IVP Q4 PRN PRN Reason: Nausea/Vomiting Last Admin: 02/02/17 08:27 Dose: 4 mg Oseltamivir Phosphate (Tamiflu Cap) 75 mg PO BID [facility] PRN Reason: Protocol Last Admin: 02/02/17 09:02 Dose: 75 mg Oxycodone/Acetaminophen (Percocet 5/325 Mg Tab) 1 tab PO Q6 PRN PRN Reason: Pain, moderate (4-7) Stop: 02/04/17 18:09 Promethazine HCl/Codeine (Phenergan/Codeine Oral Syrup) 10 ml PO Q6 [facility] Last Admin: 02/02/17 03:50 Dose: 10 ml Fluticasone/Salmeterol (Advair Diskus 250/50) 1 puff IH Q12 [facility] Last Admin: 02/02/17 09:01 Dose: 1 puff - Labs Labs: 02/01/17 05:35 02/01/17 05:35 - Constitutional Appears: No Acute Distress - Head Exam Head Exam: ATRAUMATIC, NORMAL INSPECTION, NORMOCEPHALIC - Eye Exam Eye Exam: EOMI, Normal appearance - ENT Exam ENT Exam: Mucous Membranes Moist - Neck Exam Neck Exam: Normal Inspection. absent: Lymphadenopathy - Respiratory Exam Respiratory Exam: Wheezes Additional comments: improving - Cardiovascular Exam Cardiovascular Exam: REGULAR RHYTHM, +S1, +S2 - GI/Abdominal Exam GI & Abdominal Exam: Soft, Normal Bowel Sounds - Extremities Exam Extremities Exam: Normal Capillary Refill, Normal Inspection. absent: Calf Tenderness, Pedal Edema - Back Exam Back Exam: NORMAL INSPECTION - Neurological Exam Neurological Exam: Alert, Oriented x3 - Psychiatric Exam Psychiatric exam: Normal Mood - Skin Skin Exam: Dry, Intact, Normal Color, Warm Assessment and Plan - Assessment and Plan (Free Text) Assessment: 36 yo F with pmh asthma, pseudotumor cerebri, migraines, admitted for asthma exacerbation, found to be influenza A positive. Plan: 1) Asthma exacerbation secondary to Influenza infection - Moderate persistent asthma - Levofloxacin 750mg IVPB daily to cover for aerobes due to worsening shortness of breath and multiple allergies to other agents; day 2 - Elevated WBC, likely due to steroids - Phenegran/Codeine 10ml PO Q6 - Methylprednisolone 40 mg Q12 - Singulair 10 mg HS - Advair Q12 - Albuterol Q2 neb 2) Influenza Type A - Respiratory Isolation - Oseltamivir 75 mg stat 1 dose in ER - Oseltamivir 75 mg BID x 5 days, today is day 3 3) History of pseudotumor cerebri -Acetazolamide 250mg twice daily 4) DVT prophylaxis - Lovenox 40 mg sc daily
[2017-02-02] MEDS: levoFLOXacin 750 mg in D5W 750 MG/150 ML BAG IVPB SCH (11:15)
[2017-02-02] MEDS: Enoxaparin 40 mg Syringe SC SCH (12:45)
[2017-02-02] MEDS ORDERED: Morphine 15 mg Immediate Release Tab PO PRN (13:39)
[2017-02-02 16:12] VITALS: RESP 18
[2017-02-03 01:42] VITALS: O2SAT 97
[2017-02-03] MEDS: Albuterol 0.083% Inhal Sol (2.5 mg/3 mL) UD INH SCH ×4 (02:04→10:45)
[2017-02-03] MEDS: Promethazine/Cod 6.25mg-10mg/5ml Syr UD PO SCH ×2 (03:44→10:05)
[2017-02-03 06:26] LABS: HEMATOCRIT 37.8 % (34.0-47.0); MEAN CELL VOLUME 86.5 fl (81.0-99.0); MEAN CORPUSCULAR HEMOGLOBIN 27.7 pg (27.0-31.0); MEAN CORPUSCULAR HGB CONC 32.1 g/dL (33.0-37.0); RED CELL DISTRIBUTION WIDTH 12.8 % (11.5-14.5); WHITE BLOOD COUNT 13.9 K/uL (4.8-10.8)
[2017-02-03 08:07] VITALS: BP 131/87; PULSE 58; TEMP 97.6
[2017-02-03] MEDS: Enoxaparin 40 mg Syringe SC SCH (09:42)
[2017-02-03] MEDS: levoFLOXacin 750 mg in D5W 750 MG/150 ML BAG IVPB SCH (09:43)
[2017-02-03] MEDS: MethylPREDNISolone 40 mg Vial IVP SCH (09:45)
[2017-02-03] MEDS: Fluticasone-Salmeterol 250-50mcg Diskus IH SCH (09:45)
== END 2017-02-03 13:36 | disposition home or self-care (01) | DRG 96 ==
LOC: H.ER 21:41 → H.ERHOLD 23:37 → H.MEDSURG1 01-31 02:15 → OBSVTOIN 02-01 11:32 → H.MEDSURG1 02-01 14:02
PROVIDERS: ADMIT Family Medicine Geriatric Medicine; ATTEND Family Medicine Geriatric Medicine
PROC: 3E0F7GC Introduction of Other Therapeutic Substance into Respiratory Tract, Via Natural or Artificial Opening (ICD-10-PCS; principal; 2017-01-31)
DX: J45.41 Moderate persistent asthma with (acute) exacerbation (principal); J44.9 Chronic obstructive pulmonary disease, unspecified; E11.9 Type 2 diabetes mellitus without complications; D72.829 Elevated white blood cell count, unspecified; F32.9 Major depressive disorder, single episode, unspecified; F41.9 Anxiety disorder, unspecified; G43.909 Migraine, unspecified, not intractable, without status migrainosus; I10 Essential (primary) hypertension; J10.89 Influenza due to other identified influenza virus with other manifestations; T38.0X5A Adverse effect of glucocorticoids and synthetic analogues, initial encounter; Z78.9 Other specified health status; Z79.899 Other long term (current) drug therapy; Z87.440 Personal history of urinary (tract) infections; L40.9 Psoriasis, unspecified; M54.9 Dorsalgia, unspecified; Z88.3 Allergy status to other anti-infective agents; Z88.0 Allergy status to penicillin

== ENCOUNTER 2017-06-23 19:32 | Emergency (ER) | payer MEDICAID, OTHER ==
[2017-06-23 19:32] VITALS: BMI 35.7
[2017-06-23] MEDS ORDERED: Tdap Vaccine 0.5 ml Vial (10-64 yrs) IM ONE ×2 (19:56→20:18)
--- NOTE | 2017-06-23 20:38 | ED PDOC ---
HPI: Skin/Bite Injury Time Seen by Provider: 06/23/17 19:37 Chief Complaint (Nursing): Bite Chief Complaint (Provider): Left ankle bite History Per: Patient History/Exam Limitations: no limitations Onset/Duration Of Symptoms: Mins Current Symptoms Are (Timing): Still Present Location Of Injury: Left: Ankle, Anterior: Ankle, Posterior: Ankle Additional Complaint(s): 36y/o female, with history of pseudotumor cerebri and asthma presents to ER for evaluation of left ankle pain after a dog bite. Patient states the dog is a family pet and has been domesticated its entire life; patient states the dog recently gave to puppies and has been "very territorial." She reports the dog was kept in the bathroom and while attempting to walk inside the bathroom, she was bit. She denies any other injuries, weakness, numbness or tingling to her left lower extremity. She has no other medical complaints at this time besides localized pain to the bite site. LMP: 06/06/17 PMD: Jim Epps - Animal Bite Description Of The Attack: Entered Animal's Territory Description Of The Animal: Family Pet Animal Appears: Well Animal's Immunization Status: UTD Past Medical History Reviewed: Historical Data, Nursing Documentation, Vital Signs Vital Signs: Last Vital Signs Temp 98 F 06/24/17 00:28 Pulse 76 06/24/17 00:28 Resp 18 06/24/17 00:28 BP 120/68 06/24/17 00:28 Pulse Ox 98 06/26/17 03:08 - Medical History PMH: Anxiety, Asthma (RARELY USES INHALER), Depression, HTN, Migraine Denies: HIV, Chronic Kidney Disease - Surgical History Surgical History: Tonsillectomy Other surgeries: tubal ligation, adenoidectomy - Family History Family History: States: Diabetes, Hypertension - Home Medications Home Medications: Ambulatory Orders Medication Instructions Recorded Albuterol HFA [Ventolin HFA 90 2 inh INH PRN PRN 30 Days inhaler 02/03/17 mcg/actuation (8 g)] Montelukast [Singulair] 10 mg PO HS 30 Days tab 02/03/17 Oseltamivir [Tamiflu Cap] 75 mg PO BID 2 Days cap 02/03/17 Prednisone [Anatoliy] 5 mg PO DAILY #5 tablet. 02/03/17 Promethazine/Codeine 10 ml PO Q6 #1 bottle 02/03/17 [Phenergan/Codeine Oral Syrup] Salmeterol Xinafoate/Fluticaso 1 inh INH BID #30 inhaler 02/03/17 [Advair Hfa 45-21] Topiramate [Topamax] 150 mg PO DAILY #30 tablet 02/03/17 Ciprofloxacin [Cipro] 500 mg PO BID #14 tab 06/23/17 Clindamycin [Cleocin] 300 mg PO TID #21 cap 06/23/17 Ibuprofen [Motrin Tab] 600 mg PO Q6 PRN #24 tab 06/23/17 traMADol [Ultram] 50 mg PO BID PRN #10 tab 06/23/17 - Allergies Allergies/Adverse Reactions: Allergies Allergy/AdvReac Type Severity Reaction Status Date / Time erythromycin base Allergy Severe ANAPHYLAXIS Verified 04/23/15 09:42 amoxicillin [From Augmentin] Allergy URTICARIA Verified 01/30/17 21:59 clavulanic acid Allergy URTICARIA Verified 01/30/17 21:59 [From Augmentin] Review of Systems ROS Statement: Except As Marked, All Systems Reviewed And Found Negative Musculoskeletal: Positive for: Foot Pain (left ankle pain. ) Neurological: Negative for: Weakness, Numbness, Other (tingling) Physical Exam - Reviewed Nursing Documentation Reviewed: Yes Vital Signs Reviewed: Yes - Physical Exam Comments: GENERAL APPEARANCE: Patient is awake, alert, oriented x 3, in mild painful distress. SKIN: Warm, dry; (-) cyanosis. NECK: Supple, FROM ENT: Mucus membranes moist. CARDIOVASCULAR: Regular rate, rhythm. (+) distal pulse. CHEST: Breath sounds equal bilaterally. (-) rales (-) rhonchi (-) wheezing. Speaking in full sentences. LOWER EXTREMITY: Multiple puncture wounds and superficial abrasions noted to medial and lateral aspect of left ankle with mild surrounding erythema and ecchymosis. There is a 1.5cm linear, horizontal laceration to ventral aspect of distal lower leg; no active bleeding noted. (+) Decreased ROM of right ankle due to pain. (+) Capillary refill < 2 seconds. Rest of left lower extremity is normal. NEUROLOGIC: (+) distal sensation. - ECG O2 Sat by Pulse Oximetry: 98 (RA) Pulse Ox Interpretation: Normal Medical Decision Making Medical Decision Making: Impression: Acute ankle pain, dog bite to ankle Plan: -- Podiatry consult -- Cleocin 300mg PO -- XR Left ankle -- Toradol 30mg PO -- Tramadol 100mg PO (Patient has a ride home with at bedside and will not be driving home) -- Adacel 0.5ml IM Time: 2229 Patient seen and evaluated by podiatry resident Dr. Stallworth. Time: 2100 XR Left ankle: no fracture, no dislocation, as read by PA. Patient advised that official radiology read of XR is still pending and will call the patient if there is any discrepancy within 24 hours. Time: 2214 Wound debrided and dressing applied by podiatry resident. Wound culture obtained. Patient placed in cast shoe and supplied with crutches. NV intact after placement and procedure. Advised to continue wound care as directed by podiatry. Instructed on crutch walking. Time: 2244 Per podiatry resident, patient is stable for discharge home. Patient to be placed on course of Clindamycin and Cipro PO, and given instructions to follow up with podiatry clinic (Dr Cancino at [facility] on 06/28/17). On exam, patient remains AAOx3, in no acute distress. On exam, neck is supple, lungs CTA, cardiac RRR, neuro exam shows no focal findings. VSS, stable for discharge. Diagnostic results d/w the patient in great detail. Dx of acute ankle pain/ wounds s/p dog bite d/w the patient. Based on history, exam and diagnostic results plan will be for discharge and outpatient follow up. Advised to return to the emergency room at any time for any new or worsening symptoms. Patient states she fully agrees with and understands discharge instructions. States that she agrees with the plan and disposition. Verbalized and repeated discharge instructions and plan. I have given the patient opportunity to ask any additional questions. Scribe Attestation: Documented by Kiley Lizarraga acting as a scribe for CHEY Davis. Provider Attestation: All medical record entries made by the Scribe were at my direction and personally dictated by me. I have reviewed the chart and agree that the record accurately reflects my personal performance of the history, physical exam, medical decision making, and the department course for this patient. I have also personally directed, reviewed, and agree with the discharge instructions and disposition. Disposition - Clinical Impression Clinical Impression: Ankle pain, Dog bite of ankle, Laceration of ankle, Puncture wound of ankle - Patient ED Disposition Is Patient to be Admitted: No Counseled Patient/Family Regarding: Studies Performed, Diagnosis, Need For Followup, Rx Given - Disposition Referrals: Shalini Cancino DPM [Staff Provider] - Podiatry Clinic [Outside] Disposition: Routine/Home Disposition Time: 22:48 Condition: STABLE Additional Instructions: FOLLOW UP DIRECTED BY PODIATRY ON 06/28/[address] CANCINO AT [facility]. RETURN TO ED WITH ANY NEW OR WORSENING SYMPTOMS. Prescriptions: Ciprofloxacin [Cipro] 500 mg PO BID #14 tab Clindamycin [Cleocin] 300 mg PO TID #21 cap Ibuprofen [Motrin Tab] 600 mg PO Q6 PRN #24 tab PRN Reason: Pain, Moderate (4-7) traMADol [Ultram] 50 mg PO BID PRN #10 tab PRN Reason: Pain, Severe (8-10) Instructions: Ankle Sprain, Animal Bites (DC), Wound Care Forms: Shopear (Macedonian) Print Language: YAKUT - POA Present On Arrival: Falls Or Trauma
[2017-06-24 00:29] VITALS: BP 120/68; PULSE 76; RESP 18; TEMP 98
--- NOTE | 2017-06-24 00:42 | CP.PCM.CON ---
History of Present Illness - History of Present Illness History of Present Illness: 36F seen in ED complaining of pain to her left ankle after being bitten by her dog. Patient states that her dog recently gave to puppies and attacked the patient when she got in between the puppies and the dog. Patient states that dog is a pitbull and that the dogs jaws clamped down around the entire circumference of the patient's leg and then the dog began thrashing its head before letting go. Patient describes her pain as 9/10. Patient is AAO x 3 and NAD during entirety of examination. Patient denies any further pedal complaints at this time. Patient denies any recent N/V/F/C/CP/SOB/D Review of Systems - Review of Systems All systems: reviewed and no additional remarkable complaints except Review of Systems: as per HPI Past Patient History - Infectious Disease Hx of Infectious Diseases: None (pseudotumor cerebri) - Past Medical History & Family History Past Medical History?: Yes - Past Social History Smoking Status: Never Smoked - CARDIAC Hx Hypertension: Yes - PULMONARY Hx Asthma: Yes (RARELY USES INHALER) - NEUROLOGICAL Hx Migraine: Yes - HEENT Hx HEENT Problems: No - RENAL Hx Chronic Kidney Disease: No - ENDOCRINE/METABOLIC Hx Endocrine Disorders: No - HEMATOLOGICAL/ONCOLOGICAL Hx Human Immunodeficiency Virus (HIV): No - INTEGUMENTARY Hx Dermatological Problems: Yes Hx Psoriasis: Yes - MUSCULOSKELETAL/RHEUMATOLOGICAL Hx Musculoskeletal Disorders: Yes Hx Falls: Yes - GASTROINTESTINAL Hx Gastrointestinal Disorders: Yes Hx Vomiting: Yes - GENITOURINARY/GYNECOLOGICAL Hx Genitourinary Disorders: Yes Hx Urinary Tract Infection: Yes Other/Comment: Hx ovarian cyst. Hx fallopian tube rupture. Hx ectopic - PSYCHIATRIC Hx Anxiety: Yes Hx Depression: Yes - SURGICAL HISTORY Hx Tonsillectomy: Yes - ANESTHESIA Hx Anesthesia: Yes Hx Anesthesia Reactions: No Hx Malignant Hyperthermia: No Meds Home Medications: Home Medication List Medication Instructions Recorded Confirmed Type Ciprofloxacin [Cipro] 500 mg PO BID #14 tab 06/23/17 Rx Clindamycin [Cleocin] 300 mg PO TID #21 cap 06/23/17 Rx Ibuprofen [Motrin Tab] 600 mg PO Q6 PRN #24 tab 06/23/17 Rx traMADol [Ultram] 50 mg PO BID PRN #10 tab 06/23/17 Rx Allergies/Adverse Reactions: Allergies Allergy/AdvReac Type Severity Reaction Status Date / Time erythromycin base Allergy Severe ANAPHYLAXIS Verified 04/23/15 09:42 amoxicillin [From Augmentin] Allergy URTICARIA Verified 01/30/17 21:59 clavulanic acid Allergy URTICARIA Verified 01/30/17 21:59 [From Augmentin] Physical Exam - Constitutional Appears: Well, Non-toxic, No Acute Distress - Head Exam Head Exam: ATRAUMATIC, NORMOCEPHALIC - Eye Exam Eye Exam: EOMI, PERRL - ENT Exam ENT Exam: Mucous Membranes Moist, Normal Exam - Respiratory Exam Respiratory Exam: NORMAL BREATHING PATTERN. absent: Respiratory Distress - GI/Abdominal Exam GI & Abdominal Exam: absent: Distended, Firm, Guarding - Extremities Exam Additional comments: LE focused exam: Vasc: DP/PT pulses fully palpable b/l. Skin temperature warm to warm from proximal to distal WNL. CFT < 3 seconds to all digits b/l. Minimal edema noted to left leg Neuro: Epicritic and protective sensation grossly intact b/l Derm: Multiple puncture thayer from the dogs teeth noted to medial, anterior and lateral lower left leg. One laceration measuring roughly 2 cm x 0.5 cm x 0.5 cm noted to anterolateral left leg. Second laceration measuring roughly 0.5 cm x 0.2 cm x 0.3 cm noted to medial left leg. None of the puncture or laceration sites demonstrated any periwound erythema, malodor, drainage or other clinical signs of infection. No tendinous, osseous or other identifiable structure could be seen with exploration of the laceration sites MSK: POP to all puncture and laceration sites. Patient unable to dorsiflex left ankle or left digits secondary to guarding vs. possible soft tissue compromise - Back Exam Back exam: absent: CVA tenderness (L), CVA tenderness (R) - Neurological Exam Neurological exam: Alert, Oriented x3 - Psychiatric Exam Psychiatric exam: Normal Affect, Normal Mood Results - Vital Signs Recent Vital Signs: Last Vital Signs Temp 98 F 06/24/17 00:28 Pulse 76 06/24/17 00:28 Resp 18 06/24/17 00:28 BP 120/68 06/24/17 00:28 Pulse Ox 99 06/24/17 00:28 Assessment & Plan - Assessment and Plan (Free Text) Assessment: 36F seen in ED for multiple puncture wounds and lacerations after being bitten by her dog Plan: Patient seen and evaluated Plan discussed with attending Dr. Tinajero Charts, labs, vitals reviewed Afebrile All skin surrounding bite thayer prepped with betadine 2% lidocaine plain used to anesthetize bite thayer All bite thayer and laceration sites explored for debris and flushed with copious amounts of betadine laced normal saline Soap solution used to cleanse entire bite area All bite thayer and lacerations dressed with bacitracin, Telfa, DSD, DEACON Patient given crutches and educated on their proper use Rx Clindamycin and Ciprofloxacin Rx Percocet Patient instructed to extensively clean wound sites every day and apply topical antibiotic with clean bandages Patient to return immediately to ED if any constitutional signs or symptoms of infection occur Patient instructed to practice dorsiflexion at ankle joint and keep foot elevated as much as possible Patient to follow up with Dr. Cancino in [facility] on Wednesday for continued care and possible primary closure of laceration sites - Date & Time Date: 06/24/17 Time: 00:54
--- NOTE | 2017-06-24 09:12 | RAD ---
PROCEDURE: Left Ankle Radiographs. HISTORY: dog bite/trauma COMPARISON: None FINDINGS: BONES: No acute fracture. JOINTS: Ankle mortise maintained. Talar dome intact SOFT TISSUES: Subcutaneous air along the anterior aspect of the distal lower extremity. OTHER FINDINGS: None. IMPRESSION: No demonstrated fracture or dislocation. Subcutaneous air along the anterior aspect of the distal lower extremity likely corresponding to the reported clinical history of dog bite.
[2017-06-26 03:07] VITALS: O2SAT 98
== END 2017-06-24 00:29 | disposition home or self-care (01) ==
LOC: H.ER 19:32
DX: S91.032A Puncture wound without foreign body, left ankle, initial encounter (principal); W54.0XXA Bitten by dog, initial encounter; Y92.89 Other specified places as the place of occurrence of the external cause; F32.9 Major depressive disorder, single episode, unspecified; F41.9 Anxiety disorder, unspecified; I10 Essential (primary) hypertension; Z88.0 Allergy status to penicillin; Z88.1 Allergy status to other antibiotic agents
CPT/HCPCS: 73610; 87070; 90471; 90715; 96372; 99282; J1885

== ENCOUNTER 2017-07-06 17:49 | Emergency (ER) | payer OTHER ==
[2017-07-06 17:49] VITALS: BMI 35.7
[2017-07-06 18:11] VITALS: BP 123/87; PULSE 94; RESP 16; TEMP 98.1; O2SAT 98
--- NOTE | 2017-07-06 19:09 | ED PDOC ---
HPI: Wound Care - HPI Time Seen by Provider: 07/06/17 18:15 Chief Complaint (Nursing): Wound Check Chief Complaint (Provider): Wound Check History Per: Patient Exam Limitations: no limitations Additional Complaint(s): 36 years old female presents to the ED for evaluation of dog bite to left ankle sustained since 06/23/2017. Patient reports she was seen here on June 23, was evaluated by podiatry and advised to follow up with a cherry pitter in which she states she was never able to do. Patient is concerned of wound infection because of persistent pain. She reports she has completed the antibiotics she was prescribed from last time. Patient denies any fever, diarrhea, swelling, chest pain, abdominal pain or shortness of breath. LMP: Now Tetanus are up to date. PMD: Jim Epps Past Medical History Reviewed: Historical Data, Nursing Documentation, Vital Signs Vital Signs: Last Vital Signs Temp 98.1 F 07/06/17 18:06 Pulse 94 H 07/06/17 18:06 Resp 16 07/06/17 18:06 BP 123/87 07/06/17 18:06 Pulse Ox 98 07/06/17 18:06 - Medical History PMH: Anxiety, Asthma (RARELY USES INHALER), Depression, HTN, Migraine Denies: HIV, Chronic Kidney Disease - Surgical History Surgical History: Tonsillectomy - Family History Family History: States: Diabetes, Hypertension - Social History Current smoker - smoking cessation education provided: No Alcohol: None Drugs: Denies - Home Medications Home Medications: Ambulatory Orders Medication Instructions Recorded Albuterol HFA [Ventolin HFA 90 2 inh INH PRN PRN 30 Days inhaler 02/03/17 mcg/actuation (8 g)] Montelukast [Singulair] 10 mg PO HS 30 Days tab 02/03/17 Oseltamivir [Tamiflu Cap] 75 mg PO BID 2 Days cap 02/03/17 Prednisone [Anatoliy] 5 mg PO DAILY #5 tablet. 02/03/17 Promethazine/Codeine 10 ml PO Q6 #1 bottle 02/03/17 [Phenergan/Codeine Oral Syrup] Salmeterol Xinafoate/Fluticaso 1 inh INH BID #30 inhaler 02/03/17 [Advair Hfa 45-21] Topiramate [Topamax] 150 mg PO DAILY #30 tablet 02/03/17 Ciprofloxacin [Cipro] 500 mg PO BID #14 tab 06/23/17 Clindamycin [Cleocin] 300 mg PO TID #21 cap 06/23/17 Ibuprofen [Motrin Tab] 600 mg PO Q6 PRN #24 tab 06/23/17 traMADol [Ultram] 50 mg PO BID PRN #10 tab 06/23/17 - Allergies Allergies/Adverse Reactions: Allergies Allergy/AdvReac Type Severity Reaction Status Date / Time erythromycin base Allergy Severe ANAPHYLAXIS Verified 07/06/17 18:06 amoxicillin [From Augmentin] Allergy URTICARIA Verified 07/06/17 18:06 clavulanic acid Allergy URTICARIA Verified 07/06/17 18:06 [From Augmentin] Review of Systems ROS Statement: Except As Marked, All Systems Reviewed And Found Negative Constitutional: Negative for: Fever Cardiovascular: Negative for: Chest Pain Respiratory: Negative for: Shortness of Breath Musculoskeletal: Negative for: Other (swelling of left ankle) Physical Exam - Physical Exam Comments: GENERAL APPEARANCE: Patient is awake, alert, oriented x 3, in mild painful distress. SKIN: Warm, dry; (-) cyanosis. NECK: Supple, FROM ENT: Mucus membranes moist. CARDIOVASCULAR: Regular rate, rhythm. (+) distal pulse. CHEST: Breath sounds equal bilaterally. (-) rales (-) rhonchi (-) wheezing. Speaking in full sentences. LOWER EXTREMITY: Healing of multiple puncture wounds and superficial abrasions noted to medial and lateral aspect of left ankle. The 1.5cm linear, diagonal gaping laceration to ventral aspect of distal lower leg is still present; no active bleeding noted, no evidence of infection or pus drainage, no erythema or warmth, (+) Decreased ROM of right ankle due to pain. (+) Capillary refill < 2 seconds. Rest of left lower extremity is normal, ambulatory with limp. NEUROLOGIC: (+) distal sensation. - ECG O2 Sat by Pulse Oximetry: 98 (RA) Pulse Ox Interpretation: Normal Medical Decision Making Medical Decision Making: Time: 1904 Spoke to podiatry, Dr Dipak Shelton, who states patient needs to follow up with podiatry clinic tomorrow. Time: 1914 Upon provider reevaluation, patient was found to have left the ER before completing treatment. Scribe Attestation: Documented by Chanel Liao, acting as a scribe for Monserrat Saunders PA-C Provider Scribe Attestation: All medical record entries made by the Scribe were at my direction and personally dictated by me. I have reviewed the chart and agree that the record accurately reflects my personal performance of the history, physical exam, medical decision making, and the department course for this patient. I have also personally directed, reviewed, and agree with the discharge instructions and disposition. Disposition - Clinical Impression Clinical Impression: Dog bite of right ankle, Visit for wound check - Patient ED Disposition Is Patient to be Admitted: No - Disposition Disposition: Left W/O Treatment (before podiatry consult completed) Disposition Time: 19:15 Forms: Posibl. (Japanese)
== END 2017-07-06 19:15 | disposition left against medical advice (07) ==
LOC: H.ER 17:49
DX: S91.052D Open bite, left ankle, subsequent encounter (principal); W54.0XXD Bitten by dog, subsequent encounter; J45.909 Unspecified asthma, uncomplicated; Z88.0 Allergy status to penicillin; Z88.1 Allergy status to other antibiotic agents

== ENCOUNTER 2017-09-27 20:03 | Emergency (ER) | payer OTHER ==
[2017-09-27 20:04] VITALS: BMI 35.7
[2017-09-27] MEDS ORDERED: Morphine 4 MG/ML VIAL IV STA (22:47)
[2017-09-27] MEDS ORDERED: Sodium Chloride 0.9% 1,000 ML IV STA (22:48)
[2017-09-27] MEDS ORDERED: Morphine 4 MG/ML VIAL ONE (23:05)
[2017-09-27 23:09] LABS: BASO # 0.1 K/uL (0.0-0.2); EOS # 0.7 K/uL (0.0-0.7); EOS % 6.1 % (0.0-4.0); LYMPH # 3.3 K/uL (1.0-4.3); LYMPH % 27.9 % (20.0-40.0); MEAN CELL VOLUME 86.3 fl (81.0-99.0); MEAN CORPUSCULAR HEMOGLOBIN 28.8 pg (27.0-31.0); MEAN CORPUSCULAR HGB CONC 33.4 g/dL (33.0-37.0); MONO # 0.8 K/uL (0.0-0.8); MONO % 6.9 % (0.0-10.0); NEUT # 6.8 K/uL (1.8-7.0); NEUT % 58.1 % (50.0-75.0); NRBC % 0.1 % (0.0-0.0); RBC 4.85 Mil/uL (3.80-5.20); RED CELL DISTRIBUTION WIDTH 13.2 % (11.5-14.5); WHITE BLOOD COUNT 11.7 K/uL (4.8-10.8)
[2017-09-27 23:21] LABS: ALB/GLOB RATIO 1.5 (1.0-2.1); ALBUMIN 4.5 g/dL (3.5-5.0); ALT/SGPT 24 U/L (9-52); AST/SGOT 20 U/L (14-36); BLOOD UREA NITROGEN 11 mg/dl (7-17); GFR AFRICAN-AMERICAN > 60; GFR NON-AFRICAN AMERICAN > 60
--- NOTE | 2017-09-28 01:35 | ED PDOC ---
HPI: Female Pain Time Seen by Provider: 09/27/17 22:06 Chief Complaint (Nursing): Female Genitourinary Chief Complaint (Provider): Pelvic pain, vaginal bleeding History Per: Patient History/Exam Limitations: no limitations Onset/Duration Of Symptoms: Days (2) Current Symptoms Are (Timing): Still Present Quality Of Discomfort: Sharp, Cramping Associated Symptoms: Nausea, Loss Of Appetite. denies: Fever, Chills, Vomiting , Diarrhea, Back Pain, Chest Pain, Urinary Symptoms Alleviating Factors: None Additional Complaint(s): 36 yo female with no medical problems presents for evaluation of pelvic pain. Pt reports pain bilateral however worse on the left. Pt reports pain beginning 2 days ago during intercourse. Pt states she noticed a small amount of vaginal bleeding. 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 PT states she had pelvic pain in the past and had surgery which resolved the pain. Pt initially states she had her ovaries removed but than reports normal menses. Pt states her last menses was 2 weeks ago. Pt has history of ectopic and 8 medical abortions. Past Medical History Reviewed: Historical Data, Nursing Documentation, Vital Signs Vital Signs: Last Vital Signs Temp 98 F 09/27/17 20:49 Pulse 70 09/27/17 20:49 Resp 72 H 09/27/17 20:49 BP 131/88 09/27/17 20:49 Pulse Ox 99 09/27/17 20:49 - Medical History PMH: Anxiety, Asthma (RARELY USES INHALER), Depression Denies: HIV, HTN, Migraine, Chronic Kidney Disease - Surgical History Surgical History: Tonsillectomy - Family History Family History: States: Diabetes, Hypertension - Home Medications Home Medications: Ambulatory Orders Medication Instructions Recorded Albuterol HFA [Ventolin HFA 90 2 inh INH PRN PRN 30 Days inhaler 02/03/17 mcg/actuation (8 g)] Montelukast [Singulair] 10 mg PO HS 30 Days tab 02/03/17 Oseltamivir [Tamiflu Cap] 75 mg PO BID 2 Days cap 02/03/17 Prednisone [Anatoliy] 5 mg PO DAILY #5 tablet. 02/03/17 Promethazine/Codeine 10 ml PO Q6 #1 bottle 02/03/17 [Phenergan/Codeine Oral Syrup] Salmeterol Xinafoate/Fluticaso 1 inh INH BID #30 inhaler 02/03/17 [Advair Hfa 45-21] Topiramate [Topamax] 150 mg PO DAILY #30 tablet 02/03/17 Ciprofloxacin [Cipro] 500 mg PO BID #14 tab 06/23/17 Clindamycin [Cleocin] 300 mg PO TID #21 cap 06/23/17 Ibuprofen [Motrin Tab] 600 mg PO Q6 PRN #24 tab 06/23/17 traMADol [Ultram] 50 mg PO BID PRN #10 tab 06/23/17 - Allergies Allergies/Adverse Reactions: Allergies Allergy/AdvReac Type Severity Reaction Status Date / Time erythromycin base Allergy Severe ANAPHYLAXIS Verified 07/06/17 18:06 amoxicillin [From Augmentin] Allergy URTICARIA Verified 07/06/17 18:06 clavulanic acid Allergy URTICARIA Verified 07/06/17 18:06 [From Augmentin] Review of Systems ROS Statement: Except As Marked, All Systems Reviewed And Found Negative Constitutional: Negative for: Fever, Chills Gastrointestinal: Positive for: Nausea. Negative for: Vomiting, Abdominal Pain , Diarrhea Genitourinary Female: Positive for: Vaginal Bleeding, Pelvic Pain. Negative for : Dysuria, Vaginal Discharge Physical Exam - Reviewed Nursing Documentation Reviewed: Yes Vital Signs Reviewed: Yes - Physical Exam Appears: Positive for: Well, Non-toxic, No Acute Distress Head Exam: Positive for: ATRAUMATIC, NORMAL INSPECTION, NORMOCEPHALIC Skin: Positive for: Normal Color, Warm, DRY Eye Exam: Positive for: Normal appearance ENT: Positive for: Normal ENT Inspection Neck: Positive for: Normal, Painless ROM Cardiovascular/Chest: Positive for: Regular Rate, Rhythm Respiratory: Positive for: CNT, Normal Breath Sounds Gastrointestinal/Abdominal: Positive for: Normal Exam, Soft. Negative for: Tenderness Pelvic Exam: Positive for: External Exam Normal, Speculum Exam Normal, Bimanual Exam Normal, No Cerv. Motion Tender, Blood, Other (No cervical lacerations ). Negative for: Cervicitis, Mass, Tender W/Cervical Motion, Tender Adnexa, Tender Uterus Back: Positive for: Normal Inspection Extremity: Positive for: Normal ROM Neurologic/Psych: Positive for: Alert, Oriented - Laboratory Results Result Diagrams: 09/27/17 22:57 08/13/18 22:57 - ECG O2 Sat by Pulse Oximetry: 99 Pulse Ox Interpretation: Normal Medical Decision Making Medical Decision Making: right sided ovarian cyst on US Disposition - Clinical Impression Clinical Impression: Pelvic pain - Patient ED Disposition Is Patient to be Admitted: No Counseled Patient/Family Regarding: Diagnosis, Need For Followup - Disposition Referrals: Lizeth Talbot MD [Medical Doctor] - Disposition: Routine/Home Disposition Time: 01:35 Condition: GOOD Instructions: Acute Pelvic Pain (DC) Forms: DLS (Georgian)
[2017-09-28 02:01] VITALS: BP 127/75; PULSE 58; RESP 18; TEMP 98.1
[2017-09-28 02:21] VITALS: O2SAT 99
--- NOTE | 2017-09-28 11:24 | US ---
Date of service: 09/27/2017 HISTORY: vaginal bleeding, pain with intercourse LMP 09/15/2017. Relevant surgical history: Left adnexal cyst removed 2016 COMPARISON: 04/02/2015. Pelvic ultrasound TECHNIQUE: Transvaginal only. Real -time technique with 2D, duplex and color Doppler FINDINGS: UTERUS: Measures 2.8 x 3.8 x 6.2 cm. Normal in size and appearance. No fibroid or other mass lesion seen. ENDOMETRIUM: Measures 1.7 mm in diameter. No ultrasound findings to suggest gestational sac, fluid, debris, mass or polyp or other pathologic process within the endometrium. CERVIX: No cervical abnormality identified. RIGHT OVARY: Measures 1.6 x 3.2 x 2.7 cm. No solid mass. Normal flow. Simple cyst 1.6 x 2 x 2.4 cm LEFT OVARY: Measures 1.7 x 1.9 x 1.5 cm. No solid mass. Normal flow. Multiple subcentimeter follicles. FREE FLUID: No significant free fluid noted. OTHER FINDINGS: None. IMPRESSION: Bilateral adnexal cysts/ follicles. Unremarkable uterus and endometrial echo complex. Concordant results (preliminary interpretation) provided by [facility]. Procedure Completed: 00:09 Preliminary ([facility]) Report: Dictated and Authenticated: 01:15. Final Interpretation: 11:22.
== END 2017-09-28 02:01 | disposition home or self-care (01) ==
LOC: H.ER 20:03
DX: N83.202 Unspecified ovarian cyst, left side (principal); R10.2 Pelvic and perineal pain; F41.9 Anxiety disorder, unspecified; Z88.0 Allergy status to penicillin; Z88.1 Allergy status to other antibiotic agents
CPT/HCPCS: 76830; 80053; 81025; 85025; 87491; 87591; 96374; 99284; J1885; J2270; J7030

== ENCOUNTER 2017-11-10 11:52 | Inpatient (IN) | payer OTHER ==
[2017-11-10 12:03] VITALS: BMI 29.8
[2017-11-10] MEDS ORDERED: Albuterol-Ipratrop 3 mg / 0.5 (3 ml) UD INH STA ×3 (12:36→12:55)
[2017-11-10] MEDS ORDERED: Sodium Chloride 0.9% 1,000 ML IV STA (12:38)
[2017-11-10] MEDS ORDERED: Magnesium Sulfate 2 gm/50 ml 2 GM/50 ML BAG IVPB ONE (12:38)
[2017-11-10] MEDS ORDERED: Magnesium Sulfate 2 gm/50 ml 2 GM/50 ML BAG ONE (12:40)
[2017-11-10] MEDS ORDERED: Albuterol-Ipratrop 3 mg / 0.5 (3 ml) UD ONE (12:40)
--- NOTE | 2017-11-10 13:19 | RAD ---
Date of service: 11/10/2017 PROCEDURE: CHEST RADIOGRAPH, 1 VIEW HISTORY: cough, fever, short of breath, asthma COMPARISON: Chest radiograph dated 01/30/2017. FINDINGS: LUNGS: Clear. PLEURA: No pneumothorax or pleural fluid seen. CARDIOVASCULAR: Normal. OSSEOUS STRUCTURES: No significant abnormalities. VISUALIZED UPPER ABDOMEN: Normal. OTHER FINDINGS: None. IMPRESSION: No active disease.
--- NOTE | 2017-11-10 13:35 | ED PDOC ---
HPI: SOB/CHF/COPD Time Seen by Provider: 11/10/17 12:33 Chief Complaint (Nursing): Shortness Of Breath Chief Complaint (Provider): Shortness Of Breath History Per: Patient History/Exam Limitations: no limitations Onset/Duration Of Symptoms: Days (x1 week) Current Symptoms Are (Timing): Still Present Additional Complaint(s): 36 year old female presenting for evaluation of cough and shortness of breath x1 week. Patient is a known asthmatic and reports coughing for the past week. Patient also reports a fever onset a few days ago and increasing shortness of breath. Patient states shes using her nebulizer at home, but the machine stopped working. Patient is presenting today for nebulizer treatment and relief of symptoms. Past Medical History Reviewed: Historical Data, Nursing Documentation, Vital Signs Vital Signs: Last Vital Signs Temp 98.4 F 11/10/17 12:01 Pulse 76 11/10/17 12:01 Resp 20 11/10/17 12:14 BP 143/100 H 11/10/17 12:01 Pulse Ox 100 11/10/17 12:01 - Medical History PMH: Anxiety, Asthma (RARELY USES INHALER), Depression Denies: HIV, HTN, Migraine, Chronic Kidney Disease - Surgical History Surgical History: Tonsillectomy - Family History Family History: States: Diabetes, Hypertension - Home Medications Home Medications: Ambulatory Orders Medication Instructions Recorded Albuterol HFA [Ventolin HFA 90 2 inh INH PRN PRN 30 Days inhaler 02/03/17 mcg/actuation (8 g)] Montelukast [Singulair] 10 mg PO HS 30 Days tab 02/03/17 Oseltamivir [Tamiflu Cap] 75 mg PO BID 2 Days cap 02/03/17 Prednisone [Anatoliy] 5 mg PO DAILY #5 tablet. 02/03/17 Promethazine/Codeine 10 ml PO Q6 #1 bottle 02/03/17 [Phenergan/Codeine Oral Syrup] Salmeterol Xinafoate/Fluticaso 1 inh INH BID #30 inhaler 02/03/17 [Advair Hfa 45-21] Topiramate [Topamax] 150 mg PO DAILY #30 tablet 02/03/17 Ciprofloxacin [Cipro] 500 mg PO BID #14 tab 06/23/17 Clindamycin [Cleocin] 300 mg PO TID #21 cap 06/23/17 Ibuprofen [Motrin Tab] 600 mg PO Q6 PRN #24 tab 06/23/17 traMADol [Ultram] 50 mg PO BID PRN #10 tab 06/23/17 - Allergies Allergies/Adverse Reactions: Allergies Allergy/AdvReac Type Severity Reaction Status Date / Time erythromycin base Allergy Severe ANAPHYLAXIS Verified 07/06/17 18:06 amoxicillin [From Augmentin] Allergy URTICARIA Verified 07/06/17 18:06 clavulanic acid Allergy URTICARIA Verified 07/06/17 18:06 [From Augmentin] Review of Systems ROS Statement: Except As Marked, All Systems Reviewed And Found Negative Constitutional: Positive for: Fever Cardiovascular: Negative for: Chest Pain Respiratory: Positive for: Cough, Shortness of Breath Physical Exam - Reviewed Nursing Documentation Reviewed: Yes Vital Signs Reviewed: Yes - Physical Exam Appears: Positive for: Well, Non-toxic, No Acute Distress Head Exam: Positive for: ATRAUMATIC, NORMAL INSPECTION, NORMOCEPHALIC Skin: Positive for: Normal Color, Warm, Dry. Negative for: Rash Eye Exam: Positive for: EOMI, Normal appearance, PERRL ENT: Positive for: Normal ENT Inspection Neck: Positive for: Normal, Painless ROM, Supple Cardiovascular/Chest: Positive for: Regular Rate, Rhythm. Negative for: Murmur Respiratory: Positive for: Wheezing (bilateral expiratory), Other (patient comfortable when not speaking, but coughing when speaking; prolonged expiratory phase) Gastrointestinal/Abdominal: Positive for: Normal Exam, Soft. Negative for: Tenderness Back: Positive for: Normal Inspection. Negative for: L CVA Tenderness, R CVA Tenderness, Vertebral Tenderness Extremity: Positive for: Normal ROM. Negative for: Pedal Edema, Swelling Neurologic/Psych: Positive for: Alert, Oriented. Negative for: Motor/Sensory Deficits - ECG O2 Sat by Pulse Oximetry: 100 (RA) Pulse Ox Interpretation: Normal Medical Decision Making Medical Decision Makin Initial Impression: Asthma exacerbation; r/o pneumonia Plan: -CMP -Upreg -CBC -CXR -Tylenol 650mg PO -Duoneb 3mL INH x3 -Magnesium Sulfate 2gm in 50mL IVPB -Solu-Medrol 125mg IVP -NS 1L IV at 250mL/hour -Blood culture -IV insertion -Peak flow treatment -Reevaluation Scribe Attestation: Documented by Ryan Flores, acting as a scribe for Radha Del Rio MD. Provider Scribe Attestation: All medical record entries made by the Scribe were at my direction and personally dictated by me. I have reviewed the chart and agree that the record accurately reflects my personal performance of the history, physical exam, medical decision making, and the department course for this patient. I have also personally directed, reviewed, and agree with the discharge instructions and disposition. Disposition - Clinical Impression Clinical Impression: Respiratory distress, Asthma exacerbation - Patient ED Disposition Is Patient to be Admitted: Yes Doctor Will See Patient In The: Hospital - Disposition Disposition: Transfer of Care Disposition Time: 13:30 Condition: GUARDED Forms: [facility] ([place]) - Pt Status Changed To: Hospital Disposition Of: Inpatient - Admit Certification Admit to Inpatient:: After my assessment, the patient will require hospitalization for at least two midnights. This is because of the severity of symptoms shown, intensity of services needed, and/or the medical risk in this patient being treated as an outpatient. - POA Present On Arrival: None
[2017-11-10 13:54] LABS: BASO # 0.1 K/uL (0.0-0.2); BASO % 0.7 % (0.0-2.0); EOS % 7.9 % (0.0-4.0); HEMOGLOBIN 13.8 g/dL (12.0-16.0); LYMPH % 15.2 % (20.0-40.0); MEAN CELL VOLUME 84.8 fl (81.0-99.0); MEAN CORPUSCULAR HEMOGLOBIN 28.8 pg (27.0-31.0); MEAN PLATELET VOLUME 9.2 fl (7.2-11.7); MONO # 1.3 K/uL (0.0-0.8); NEUT # 8.7 K/uL (1.8-7.0); NEUT % 66.2 % (50.0-75.0); RBC 4.79 Mil/uL (3.80-5.20); RED CELL DISTRIBUTION WIDTH 12.8 % (11.5-14.5); WHITE BLOOD COUNT 13.2 K/uL (4.8-10.8)
[2017-11-10 14:05] LABS: ALB/GLOB RATIO 1.3 (1.0-2.1); ALBUMIN 4.4 g/dL (3.5-5.0); ALT/SGPT 28 U/L (9-52); AST/SGOT 21 U/L (14-36); BLOOD UREA NITROGEN 9 mg/dl (7-17); CALCIUM 9.3 mg/dL (8.4-10.2); GFR NON-AFRICAN AMERICAN > 60
[2017-11-10] MEDS ORDERED: methylPREDNISolone 60 MG in Sodium Chloride 0.9% 50 ML IV SCH (15:00)
--- NOTE | 2017-11-10 15:18 | CP.PCM.HP ---
History of Present Illness - History of Present Illness History of Present Illness: 36 YO F patient w/ h/o Asthma, pseudotumor cerebri, MOE, MDD and migraines presents to the ER with worsening cough and SOB for the past week. She reports no improvement from advair or nebulizers. Associated headaches and fever for the last two days with TMAX 101 as per patient. Has been having chest and back pain as well from coughing. She reports a previous admission on January/2017 for asthma exacerbation and influenza pneumonia. Never been intubated. Otherwise she denies any nausea, vomiting, diarrhea, abdominal pain, dizziness, blurred vision. No urinary symptoms. PMD: Dr. Epps PMH: Asthma, Migraine, psuedotumor cerebri, MDD, MOE Allergies: Erthromycin, Amoxicillin, Clavulanic acid, Others allergies: eggplant Med: Reviewed FH: DM, HTN SH: Denies smoking, alcohol or illicit drug use Present on Admission - Present on Admission Any Indicators Present on Admission: No Review of Systems - Review of Systems All systems: reviewed and no additional remarkable complaints except (HPI) Past Patient History - Infectious Disease Hx of Infectious Diseases: None - Past Medical History & Family History Past Medical History?: Yes - Past Social History Smoking Status: Never Smoked - CARDIAC Hx Hypertension: No - PULMONARY Hx Respiratory Disorders: Yes - NEUROLOGICAL Hx Neurological Disorder: Yes - HEENT Hx HEENT Problems: No - RENAL Hx Chronic Kidney Disease: No - ENDOCRINE/METABOLIC Hx Endocrine Disorders: No - HEMATOLOGICAL/ONCOLOGICAL Hx Human Immunodeficiency Virus (HIV): No - INTEGUMENTARY Hx Dermatological Problems: Yes Hx Psoriasis: Yes - MUSCULOSKELETAL/RHEUMATOLOGICAL Hx Musculoskeletal Disorders: Yes Hx Falls: Yes - GASTROINTESTINAL Hx Gastrointestinal Disorders: Yes Hx Vomiting: Yes - GENITOURINARY/GYNECOLOGICAL Hx Genitourinary Disorders: Yes Hx Urinary Tract Infection: Yes Other/Comment: Hx ovarian cyst. Hx fallopian tube rupture. Hx ectopic - PSYCHIATRIC Hx Psychophysiologic Disorder: Yes - SURGICAL HISTORY Hx Tonsillectomy: Yes - ANESTHESIA Hx Anesthesia: Yes Hx Anesthesia Reactions: No Hx Malignant Hyperthermia: No Meds Allergies/Adverse Reactions: Allergies Allergy/AdvReac Type Severity Reaction Status Date / Time erythromycin base Allergy Severe ANAPHYLAXIS Verified 07/06/17 18:06 amoxicillin [From Augmentin] Allergy URTICARIA Verified 07/06/17 18:06 clavulanic acid Allergy URTICARIA Verified 05/22/18 18:06 [From Augmentin] Physical Exam - Constitutional Appears: No Acute Distress - Head Exam Head Exam: NORMAL INSPECTION - Eye Exam Eye Exam: EOMI, PERRL - ENT Exam ENT Exam: Mucous Membranes Moist - Respiratory Exam Respiratory Exam: Decreased Breath Sounds, Prolonged Expiratory Phase, Rhonchi, Wheezes. absent: Accessory Muscle Use - Cardiovascular Exam Cardiovascular Exam: REGULAR RHYTHM, +S1, +S2. absent: Tachycardia - GI/Abdominal Exam GI & Abdominal Exam: Soft. absent: Distended, Tenderness - Extremities Exam Extremities exam: Negative for: calf tenderness - Neurological Exam Neurological exam: Alert, CN II-XII Intact, Oriented x3 - Psychiatric Exam Psychiatric exam: Normal Mood - Skin Skin Exam: Dry, Warm Results - Vital Signs Recent Vital Signs: Last Vital Signs Temp 98.5 F 11/10/17 15:11 Pulse 88 11/10/17 15:11 Resp 18 11/10/17 15:11 BP 142/82 11/10/17 15:11 Pulse Ox 98 11/10/17 15:11 - Labs Result Diagrams: 11/10/17 13:00 11/10/17 13:00 Labs: Laboratory Results - last 24 hr 11/10/17 11/10/17 13:00 13:00 WBC 13.2 H RBC 4.79 Hgb 13.8 Hct 40.7 MCV 84.8 MCH 28.8 MCHC 34.0 RDW 12.8 Plt Count 270 MPV 9.2 Neut % (Auto) 66.2 Lymph % (Auto) 15.2 L Milam % (Auto) 10.0 Eos % (Auto) 7.9 H Baso % (Auto) 0.7 Neut # (Auto) 8.7 H Lymph # (Auto) 2.0 Milam # (Auto) 1.3 H Eos # (Auto) 1.0 H Baso # (Auto) 0.1 Sodium 141 Potassium 4.1 Chloride 108 H Carbon Dioxide 23 Anion Gap 14 BUN 9 Creatinine 0.7 Est GFR ( Amer) > 60 Est GFR (Non-Af Amer) > 60 Random Glucose 91 Calcium 9.3 Total Bilirubin 0.2 AST 21 ALT 28 Alkaline Phosphatase 67 Total Protein 7.7 Albumin 4.4 Globulin 3.4 Albumin/Globulin Ratio 1.3 Assessment & Plan - Assessment and Plan (Free Text) Assessment: 36 YO F patient w/ h/o Asthma, pseudotumor cerebri, MOE, MDD and migraines admitted due to Asthma exacerbation. Plan: Asthma exacerbation - admit to Med/surg - Moderate persistent asthma - S/P 125 mg Methylprednisolone, duonebs x3 - Chest X Ray: No acute disease - mild elevated WBC 13.6 can be secondary to steroids patient took on her own at home - c/ solumedrol 60 mg Q8h - duonebs q3h jes - f/u influenza serology and blood cx - f/u labs in am h/o MOE - denies anxiety - continue home meds H/O MDD - denies sadness, SI/HI - continue home meds DVT prophylaxis - lovenox
[2017-11-10] MEDS: Albuterol-Ipratrop 3 mg / 0.5 (3 ml) UD INH SCH ×3 (17:18→23:00)
[2017-11-10] MEDS: guaiFENesin-DM 600-30 mg ER Tab PO SCH (18:33)
[2017-11-10] MEDS: Promethazine DM 6.25 mg-15 mg/5 ml Syrup PO PRN (19:49)
[2017-11-11] MEDS: Promethazine DM 6.25 mg-15 mg/5 ml Syrup PO PRN ×2 (01:57→08:57)
[2017-11-11] MEDS: Albuterol-Ipratrop 3 mg / 0.5 (3 ml) UD INH SCH ×7 (02:08→23:26)
[2017-11-11 06:42] LABS: BASO % 0.3 % (0.0-2.0); HEMOGLOBIN 14.2 g/dL (12.0-16.0); LYMPH # 1.1 K/uL (1.0-4.3); LYMPH % 7.9 % (20.0-40.0); MEAN CORPUSCULAR HEMOGLOBIN 28.8 pg (27.0-31.0); MEAN CORPUSCULAR HGB CONC 33.9 g/dL (33.0-37.0); MEAN PLATELET VOLUME 8.9 fl (7.2-11.7); MONO # 0.2 K/uL (0.0-0.8); MONO % 1.8 % (0.0-10.0); NEUT # 12.1 K/uL (1.8-7.0); PLATELET COUNT 286 K/uL (130-400); RBC 4.93 Mil/uL (3.80-5.20); RED CELL DISTRIBUTION WIDTH 12.8 % (11.5-14.5); WHITE BLOOD COUNT 13.5 K/uL (4.8-10.8)
--- NOTE | 2017-11-11 07:16 | CP.PCM.PN ---
Subjective - Date & Time of Evaluation Date of Evaluation: 11/11/17 Time of Evaluation: 07:15 - Subjective Subjective: Patient seen and examined this morning at bedside, patient noted with dry cough and reports mild SOB. No acute overnight events. Afebrile. Sat 99% RA. Objective - Vital Signs/Intake and Output Vital Signs (last 24 hours): Temp Pulse Resp BP Pulse Ox 98.2 F 90 19 132/84 97 11/10/17 23:54 11/10/17 23:54 11/10/17 23:54 11/10/17 23:54 11/10/17 23:54 - Medications Medications: Current Medications Acetaminophen (Tylenol 325mg Tab) 650 mg PO Q6 PRN PRN Reason: Fever >100.4 F Last Admin: 11/11/17 07:02 Dose: 650 mg Albuterol/Ipratropium (Duoneb 3 Mg/0.5 Mg (3 Ml) Ud) 3 ml INH RQ3 [facility] Last Admin: 11/11/17 05:19 Dose: 3 ml Aripiprazole (Abilify) 10 mg PO DAILY [facility] Enoxaparin Sodium (Lovenox) 40 mg SC DAILY [facility]; Protocol Escitalopram Oxalate (Lexapro) 20 mg PO DAILY [facility] Guaifenesin/Dextromethorphan (Mucinex-Dm 600-30 Mg) 1 tab PO BID [facility] Last Admin: 11/10/17 18:33 Dose: 1 tab Methylprednisolone (Solu-Medrol) 60 mg IV Q8H [facility] Last Admin: 11/11/17 06:34 Dose: 60 mg Promethazine HCl/Dextromethorphan (Phenergan Dm Syrup) 5 ml PO Q6 PRN PRN Reason: Cough Last Admin: 11/11/17 01:57 Dose: 5 ml Temazepam (Restoril) 30 mg PO HS [facility] Last Admin: 11/10/17 21:19 Dose: 30 mg - Labs Labs: 11/11/17 06:10 11/10/17 13:00 - Constitutional Appears: No Acute Distress - Eye Exam Eye Exam: EOMI, PERRL - Respiratory Exam Respiratory Exam: Decreased Breath Sounds, Prolonged Expiratory Phase, Wheezes. absent: Accessory Muscle Use - Cardiovascular Exam Cardiovascular Exam: REGULAR RHYTHM, +S1, +S2. absent: Tachycardia - GI/Abdominal Exam GI & Abdominal Exam: Soft. absent: Distended, Tenderness - Extremities Exam Extremities Exam: absent: Calf Tenderness, Pedal Edema - Neurological Exam Neurological Exam: Alert, Awake, Oriented x3 - Psychiatric Exam Psychiatric exam: Normal Mood - Skin Skin Exam: Dry, Warm Assessment and Plan - Assessment and Plan (Free Text) Assessment: 36 YO F patient w/ h/o Asthma, pseudotumor cerebri, MOE, MDD and migraines admitted due to Asthma exacerbation. Plan: Asthma exacerbation - admit to Med/surg - Moderate persistent asthma - S/P 125 mg Methylprednisolone, duonebs x3 - Chest X Ray: No acute disease - mild leukocytosis 13.6, likely secondary to steroids - elodia solumedrol 60 mg Q12h - duonebs q6h jes - mucinex, phenergan x cough - f/u influenza serology and blood cx - f/u labs in am h/o MOE - denies anxiety - continue home meds H/O MDD - denies sadness, SI/HI - continue home meds DVT prophylaxis - lovenox
[2017-11-11 07:28] LABS: ALB/GLOB RATIO 1.2 (1.0-2.1); ALBUMIN 4.6 g/dL (3.5-5.0); ALT/SGPT 25 U/L (9-52); AST/SGOT 22 U/L (14-36); BLOOD UREA NITROGEN 11 mg/dl (7-17); CALCIUM 9.4 mg/dL (8.4-10.2); GFR NON-AFRICAN AMERICAN > 60
[2017-11-11] MEDS: Enoxaparin 40 mg Syringe SC SCH ×2 (08:56→09:00)
[2017-11-11] MEDS: guaiFENesin-DM 600-30 mg ER Tab PO SCH (08:56)
[2017-11-11] MEDS ORDERED: Influenza Vaccine (5 YR UP)/PF 60 MCG/0.5 ML SYR IM ONE (09:00)
[2017-11-11 10:50] LABS: LYMPHOCYTE 11 % (20-50); MONOCYTE 1 % (0-10); NEUTROPHIL 88 % (42-75); PLATELET ESTIMATE NORMAL (NORMAL); TOTAL CELLS COUNTED 100
[2017-11-11] MEDS: Promethazine/Cod 6.25mg-10mg/5ml Syr UD PO PRN ×2 (16:03→22:31)
[2017-11-12] MEDS: Albuterol-Ipratrop 3 mg / 0.5 (3 ml) UD INH SCH ×3 (04:40→12:43)
[2017-11-12] MEDS: Promethazine/Cod 6.25mg-10mg/5ml Syr UD PO PRN (04:55)
[2017-11-12 06:42] LABS: HEMOGLOBIN 13.6 g/dL (12.0-16.0); MEAN CELL VOLUME 84.9 fl (81.0-99.0); MEAN CORPUSCULAR HEMOGLOBIN 29.1 pg (27.0-31.0); MEAN CORPUSCULAR HGB CONC 34.3 g/dL (33.0-37.0); MEAN PLATELET VOLUME 8.8 fl (7.2-11.7); MONO # 0.6 K/uL (0.0-0.8); MONO % 2.3 % (0.0-10.0); NEUT # 22.6 K/uL (1.8-7.0); NEUT % 93.7 % (50.0-75.0); NRBC % 0.1 % (0.0-0.0); PLATELET COUNT 280 K/uL (130-400); RBC 4.66 Mil/uL (3.80-5.20); RED CELL DISTRIBUTION WIDTH 12.8 % (11.5-14.5); WHITE BLOOD COUNT 24.2 K/uL (4.8-10.8)
[2017-11-12 06:55] LABS: ALB/GLOB RATIO 1.2 (1.0-2.1); ALBUMIN 4.2 g/dL (3.5-5.0); ALT/SGPT 25 U/L (9-52); AST/SGOT 21 U/L (14-36); BLOOD UREA NITROGEN 20 mg/dl (7-17); CALCIUM 9.2 mg/dL (8.4-10.2); GFR NON-AFRICAN AMERICAN > 60
[2017-11-12 08:02] LABS: BANDS 1 % (0-2); LYMPHOCYTE 5 % (20-50); MONOCYTE 3 % (0-10); NEUTROPHIL 91 % (42-75); TOTAL CELLS COUNTED 100
[2017-11-12 08:05] LABS: PLATELET ESTIMATE NORMAL (NORMAL)
[2017-11-12 08:06] LABS: LARGE PLATELETS PRESENT
[2017-11-12 08:27] VITALS: BP 171/99; PULSE 66; RESP 20; TEMP 98.2; O2SAT 96
[2017-11-12] MEDS: Enoxaparin 40 mg Syringe SC SCH (08:48)
[2017-11-12] MEDS ORDERED: MethylPREDNISolone 40 mg Vial IV SCH (09:00)
--- NOTE | 2017-11-12 12:11 | CP.PCM.DIS ---
Provider - Provider Date of Admission: 11/10/17 13:53 Attending physician: Jim Epps MD Primary care physician: Dr Jim Epps Time Spent in preparation of Discharge (in minutes): 30 Diagnosis - Discharge Diagnosis (1) Moderate persistent asthma with (acute) exacerbation Status: Acute (2) Back pain Status: Acute (3) Musculoskeletal chest pain Status: Resolved Hospital Course - Lab Results Lab Results: Most Recent Lab Values WBC 24.2 K/uL (4.8-10.8) H D 11/12/17 05:25 RBC 4.66 Mil/uL (3.80-5.20) 11/12/17 05:25 Hgb 13.6 g/dL (12.0-16.0) 11/12/17 05:25 Hct 39.6 % (34.0-47.0) 11/12/17 05:25 MCV 84.9 fl (81.0-99.0) 11/12/17 05:25 MCH 29.1 pg (27.0-31.0) 11/12/17 05:25 MCHC 34.3 g/dL (33.0-37.0) 11/12/17 05:25 RDW 12.8 % (11.5-14.5) 11/12/17 05:25 Plt Count 280 K/uL (130-400) 11/12/17 05:25 MPV 8.8 fl (7.2-11.7) 11/12/17 05:25 Neut % (Auto) 93.7 % (50.0-75.0) H 11/12/17 05:25 Lymph % (Auto) 4.0 % (20.0-40.0) L 11/12/17 05:25 Jack % (Auto) 2.3 % (0.0-10.0) 11/12/17 05:25 Eos % (Auto) 0.0 % (0.0-4.0) 11/12/17 05:25 Baso % (Auto) 0.0 % (0.0-2.0) 11/12/17 05:25 Neut # (Auto) 22.6 K/uL (1.8-7.0) H 11/12/17 05:25 Lymph # (Auto) 1.0 K/uL (1.0-4.3) 11/12/17 05:25 Jack # (Auto) 0.6 K/uL (0.0-0.8) 11/12/17 05:25 Eos # (Auto) 0.0 K/uL (0.0-0.7) 11/12/17 05:25 Baso # (Auto) 0.0 K/uL (0.0-0.2) 11/12/17 05:25 Neutrophils % (Manual) 91 % (42-75) H 11/12/17 05:25 Band Neutrophils % 1 % (0-2) 11/12/17 05:25 Lymphocytes % (Manual) 5 % (20-50) L 11/12/17 05:25 Monocytes % (Manual) 3 % (0-10) 11/12/17 05:25 Platelet Estimate Normal (NORMAL) 11/12/17 05:25 Large Platelets Present 11/12/17 05:25 RBC Morphology Normal (NORMAL) 11/11/17 06:10 Sodium 143 mmol/l (132-148) 11/12/17 05:25 Potassium 4.4 MMOL/L (3.6-5.0) 11/12/17 05:25 Chloride 111 mmol/L (98-107) H 11/12/17 05:25 Carbon Dioxide 23 mmol/L (22-30) 11/12/17 05:25 Anion Gap 13 (10-20) 11/12/17 05:25 BUN 20 mg/dl (7-17) H 11/12/17 05:25 Creatinine 0.6 mg/dl (0.7-1.2) L 11/12/17 05:25 Est GFR ( Amer) > 60 11/12/17 05:25 Est GFR (Non-Af Amer) > 60 11/12/17 05:25 Random Glucose 137 mg/dL (65-105) H 11/12/17 05:25 Calcium 9.2 mg/dL (8.4-10.2) 11/12/17 05:25 Total Bilirubin 0.3 mg/dl (0.2-1.3) 11/12/17 05:25 AST 21 U/L (14-36) 11/12/17 05:25 ALT 25 U/L (9-52) 11/12/17 05:25 Alkaline Phosphatase 50 U/L (38-126) 11/12/17 05:25 Total Protein 7.8 G/DL (6.3-8.2) 11/12/17 05:25 Albumin 4.2 g/dL (3.5-5.0) 11/12/17 05:25 Globulin 3.6 gm/dL (2.2-3.9) 11/12/17 05:25 Albumin/Globulin Ratio 1.2 (1.0-2.1) 11/12/17 05:25 - Hospital Course Hospital Course: 36 YO F patient w/ h/o Asthma, pseudotumor cerebri, MOE, MDD and migraines presents to the ER with worsening cough and SOB for the past week. She reports no improvement from advair or nebulizers. Associated headaches and fever for the last two days with TMAX 101 as per patient. Also c/o chest and back pain as well from coughing. In ED patient received 125 mg of Methylprednisolone, duonebs x3 and Mg sulfate 1 g with little improvement. CXR negative for active lung disease. Patient admitted for further management and close monitoring. Placed on solumedrol 60 mg Q8h and duonebs q3h jes, phenergan and toradol for pain. Bactrim added due to increase in WBC (likely 2/2 steroids) h/o fever and more than 1 week with cough. VSS. Patient improved and discharged home with treatment optimization with Prednisone x 5days, Montelukast and phenergan for cough. Patient has scheduled appt with Dr Epps on Wednesday11/15/17 at 3:20p at [facility]. Discharge Exam - Head Exam Head Exam: NORMAL INSPECTION - Eye Exam Eye Exam: Normal appearance - Respiratory Exam Respiratory Exam: Chest Wall Tenderness, Wheezes (mild expiratory). absent: Respiratory Distress - Cardiovascular Exam Cardiovascular Exam: REGULAR RHYTHM, +S1, +S2. absent: Tachycardia - GI/Abdominal Exam GI & Abdominal Exam: Normal Bowel Sounds, Soft. absent: Distended, Tenderness - Neurological Exam Neurological exam: Alert, CN II-XII Intact, Oriented x3 - Psychiatric Exam Psychiatric exam: Normal Mood - Skin Skin Exam: Dry, Intact, Warm Discharge Plan - Discharge Medications Prescriptions: Meloxicam 15 mg PO DAILY 14 Days #14 tablet Montelukast [Singulair] 10 mg PO QPM 30 Days #30 tab Prednisone [Deltasone] 40 mg PO Q12H 5 Days #10 tablet Sulfamethoxazole/Trimethoprim [Bactrim DS 800 mg-160 mg] 1 tab PO Q12H 7 Days #14 tab - Follow Up Plan Condition: GUARDED Disposition: HOME/ ROUTINE Instructions: Asthma, Adult (DC), Avoiding Asthma Triggers, Asthma Action Plan Additional Instructions: f/u with PCP on Wednesday11/15/17 Referrals: Jim Epps MD [Staff Provider] - [facility] [place] [Outside]
== END 2017-11-12 13:44 | disposition home or self-care (01) | DRG 97 ==
LOC: H.ER 11:52 → H.ERHOLD 13:53 → H.MEDSURG1 15:15
PROVIDERS: ADMIT Family Medicine; ATTEND Family Medicine
DX: J45.41 Moderate persistent asthma with (acute) exacerbation (principal); F32.9 Major depressive disorder, single episode, unspecified; F41.1 Generalized anxiety disorder; G43.909 Migraine, unspecified, not intractable, without status migrainosus; Z88.1 Allergy status to other antibiotic agents; Z88.0 Allergy status to penicillin; Z91.018 Allergy to other foods; M54.9 Dorsalgia, unspecified

== ENCOUNTER 2018-02-01 13:06 | Emergency (ER) | payer OTHER ==
[2018-02-01 13:06] VITALS: BMI 29.8
--- NOTE | 2018-02-01 15:01 | RAD ---
Date of service: 02/01/2018 HISTORY: Shortness of breath COMPARISON: 11/10/2017 TECHNIQUE: Chest PA and lateral FINDINGS: LINES AND TUBES: None. LUNG AND PLEURA: The lungs are hyperinflated and there is peribronchial thickening with chronic changes in both lungs. No pleural effusion or pneumothorax. HEART AND MEDIASTINUM: The heart is not enlarged. No aortic atherosclerotic calcification present. The hilar and mediastinal contours are within normal limits. SKELETAL STRUCTURES: The bony structures are within normal limits for the patient's age. VISUALIZED UPPER ABDOMEN: Normal. OTHER FINDINGS: None. IMPRESSION: No active pulmonary disease. COPD.
[2018-02-01 15:20] LABS: BASO # 0.1 K/uL (0.0-0.2); EOS # 1.1 K/uL (0.0-0.7); EOS % 8.7 % (0.0-4.0); HEMOGLOBIN 13.5 g/dL (12.0-16.0); LYMPH # 2.7 K/uL (1.0-4.3); LYMPH % 20.7 % (20.0-40.0); MEAN CORPUSCULAR HEMOGLOBIN 28.8 pg (27.0-31.0); MEAN CORPUSCULAR HGB CONC 33.4 g/dL (33.0-37.0); MEAN PLATELET VOLUME 8.7 fl (7.2-11.7); MONO % 7.4 % (0.0-10.0); NEUT % 62.2 % (50.0-75.0); NRBC % 0.1 % (0.0-0.0); RBC 4.7 Mil/uL (3.80-5.20); RED CELL DISTRIBUTION WIDTH 13.2 % (11.5-14.5); WHITE BLOOD COUNT 12.9 K/uL (4.8-10.8)
[2018-02-01 15:44] LABS: ALB/GLOB RATIO 1.3 (1.0-2.1); ALBUMIN 4.6 g/dL (3.5-5.0); ALT/SGPT 36 U/L (9-52); AST/SGOT 30 U/L (14-36); BLOOD UREA NITROGEN 14 mg/dl (7-17); CALCIUM 9.8 mg/dL (8.4-10.2); GFR NON-AFRICAN AMERICAN > 60
--- NOTE | 2018-02-01 15:54 | CT ---
Date of service: 02/01/2018 PROCEDURE: CT HEAD WITHOUT CONTRAST. HISTORY: HUTCHINSON and neck pain w/ fevers COMPARISON: 07/21/2016 TECHNIQUE: Axial computed tomography images were obtained through the head/brain without intravenous contrast. Radiation dose: Total exam DLP = 855.52 mGy-cm. This CT exam was performed using one or more of the following dose reduction techniques: Automated exposure control, adjustment of the mA and/or kV according to patient size, and/or use of iterative reconstruction technique. FINDINGS: HEMORRHAGE: No intracranial hemorrhage. BRAIN: Cunningham-white matter differentiation is preserved. There is no mass, mass effect or abnormal extra-axial fluid collection. There is no territorial infarction. The midline sagittal structures are normal. VENTRICLES: The ventricles are normal in size, shape and configuration. There nonspecific prominence of bifrontal extra-axial CSF spaces CALVARIUM: There is no calvarial fracture or extracranial soft tissue swelling. PARANASAL SINUSES: Predominantly clear. MASTOID AIR CELLS: Predominantly clear. OTHER FINDINGS: None. IMPRESSION: No acute intracranial abnormality.
--- NOTE | 2018-02-01 15:54 | ED PDOC ---
HPI: Influenza Time Seen by Provider: 02/01/18 13:31 Chief Complaint: Cough, Cold, Congestion Chief Complaint (Provider): Cough, Cold, Congestion History Per: Patient Exam Limitations: no limitations Onset/Duration Of Symptoms: Days (x1 month ago ) Symptoms include: fever, headache, cough, nasal congestion. denies: vomiting, diarrhea, chest pain, blurry vision Additional complaint(s):: Chanell Gallardo is a 37 year old female with a past medical history of pseudotumor cerebri and asthma, who presents to the ED with multiple complaints. Patient states that approximately x1 month ago, she began having a cough and nasal congestion and some shortness of breath typical of her asthma. Patient has been using the nebulizer with minimal improvement in her cough. She reports that is is productive of now a yellowish and green sputum. Patient also states that x2 weeks ago she had fevers up to 104.1 F and with her last measurement being 102.1 F last night. Her sore throat has been since yesterday. Patient also reports she had developed headache and neck stiffness x1 week ago. Patient also has had a runny nose that is clear drainage. She is unsure if her neck stiffness is due to pseudotumor cerebri. She admits to feeling increased pressure in head and ear fullness but denies any unsteady gait, double vision, limb weakness, chest pain, palpitations, nausea, vomiting, diarrhea, ear pain. Patient denies having any history of diabetes, HTN, or HLD. She has been unable to see her PMD. Patient also reports that she has taken motrin 400 mg at 9 am. PMD: Jim Epps Past Medical History Reviewed: Historical Data, Nursing Documentation, Vital Signs Vital Signs: Last Vital Signs Temp 98.3 F 02/01/18 13:20 Pulse 85 02/01/18 13:20 Resp 18 02/01/18 13:20 BP 109/78 02/01/18 13:20 Pulse Ox 100 02/01/18 13:20 - Medical History PMH: Anxiety, Asthma (RARELY USES INHALER), Depression Denies: Diabetes, HIV, HTN, Hyperlipidemia, Migraine, Chronic Kidney Disease Other PMH: pseudotumor cerebri - Surgical History Surgical History: Tonsillectomy - Family History Family History: States: Diabetes, Hypertension - Home Medications Home Medications: Ambulatory Orders Medication Instructions Recorded ARIPiprazole [Allan] 10 mg PO DAILY 11/10/17 Albuterol Sulfate [Ventolin Hfa] 2 puff IH Q6 PRN 11/10/17 Escitalopram [Lexapro] 20 mg PO DAILY 11/10/17 Temazepam [Restoril] 30 mg PO HS 11/10/17 Meloxicam 15 mg PO DAILY 14 Days #14 tablet 11/12/17 Montelukast [Singulair] 10 mg PO QPM 30 Days #30 tab 11/12/17 Prednisone [Deltasone] 40 mg PO Q12H 5 Days #10 tablet 11/12/17 Sulfamethoxazole/Trimethoprim 1 tab PO Q12H 7 Days #14 tab 11/12/17 [Bactrim DS 800 mg-160 mg] Acetaminophen [Tylenol 325mg tab] 650 mg PO Q6 PRN 7 Days tab 02/01/18 Fluticasone Propionate [Flonase] 1 spr NS BID #1 bottle 02/01/18 Ibuprofen [Motrin Tab] 600 mg PO Q6 PRN 7 Days tab 02/01/18 - Allergies Allergies/Adverse Reactions: Allergies Allergy/AdvReac Type Severity Reaction Status Date / Time erythromycin base Allergy Severe ANAPHYLAXIS Verified 02/01/18 13:20 amoxicillin [From Augmentin] Allergy URTICARIA Verified 02/01/18 13:20 clavulanic acid Allergy URTICARIA Verified 02/01/18 13:20 [From Augmentin] eggplant Allergy RASH Uncoded 02/01/18 13:20 Review of Systems ROS Statement: Except As Marked, All Systems Reviewed And Found Negative Constitutional: Positive for: Fever ENT: Positive for: Nose Congestion. Negative for: Ear Pain Cardiovascular: Negative for: Chest Pain Respiratory: Positive for: Cough, Sputum Gastrointestinal: Negative for: Nausea, Vomiting, Diarrhea Musculoskeletal: Negative for: Neck Pain (neck stiffness) Neurological: Positive for: Headache Physical Exam - Reviewed Nursing Documentation Reviewed: Yes Vital Signs Reviewed: Yes - Physical Exam Appears: Positive for: Uncomfortable Head Exam: Positive for: ATRAUMATIC Eye Exam: Positive for: EOMI. Negative for: Conjunctival injection ENT: Positive for: TM Is/Are (normal), Sinus Pain/Drainage (pain on palpation of both maxillary and frontal sinuses ), Nasal Congestion, Pharyngeal Erythema, Other (swollen nasal turbinates). Negative for: Tonsillar Exudate, Tonsillar Swelling Neck: Positive for: Decreased ROM (with flexion, extension and lateral rotation of the neck ). Negative for: Normal (tenderness on palpation of the neck and bilateral shoulders ) Cardiovascular/Chest: Positive for: Regular Rate, Rhythm. Negative for: Murmur Respiratory: Positive for: Normal Breath Sounds. Negative for: Respiratory Distress Neurologic/Psych: Positive for: Alert, Oriented, Mood/Affect (appropriate), Gait (normal). Negative for: Motor/Sensory Deficits, Aphasia, Facial Droop Medical Decision Making Medical Decision Making: Time: 14:25 Plan: --cervical spine CT --Head CT without contrast --CMP --CBC with differential --chest x-ray --mono spot --rapid flu --rapid strep - Toradol 30mg IM x 1 1457 Chest x-ray FINDINGS: LINES AND TUBES: None. LUNG AND PLEURA: The lungs are hyperinflated and there is peribronchial thickening with chronic changes in both lungs. No pleural effusion or pneumothorax. HEART AND MEDIASTINUM: The heart is not enlarged. No aortic atherosclerotic calcification present. The hilar and mediastinal contours are within normal limits. SKELETAL STRUCTURES: The bony structures are within normal limits for the patient's age. VISUALIZED UPPER ABDOMEN: Normal. OTHER FINDINGS: None. IMPRESSION: No active pulmonary disease. COPD. [address] FINDINGS: HEMORRHAGE: No intracranial hemorrhage. BRAIN: Cunningham-white matter differentiation is preserved. There is no mass, mass effect or abnormal extra-axial fluid collection. There is no territorial infarction. The midline sagittal structures are normal. VENTRICLES: The ventricles are normal in size, shape and configuration. There nonspecific prominence of bifrontal extra-axial CSF spaces CALVARIUM: There is no calvarial fracture or extracranial soft tissue swelling. PARANASAL SINUSES: Predominantly clear. MASTOID AIR CELLS: Predominantly clear. OTHER FINDINGS: None. IMPRESSION: No acute intracranial abnormality. [address] FINDINGS: VERTEBRAE: There is mild reversal of normal cervical lordosis. There is normal alignment of the cervical broad-based. There is no acute fracture or traumatic anterior listhesis. The craniocervical junction is normal. The atlantoaxial joint is normal. DISCS/SPINAL CANAL/NEURAL FORAMINA: No significant central canal or neural foraminal stenosis. Discs heights are grossly preserved. PARASPINAL SOFT TISSUES: The paraspinous soft tissues are normal. No prevertebral soft tissue thickening. OTHER FINDINGS: None. IMPRESSION: No acute fracture or traumatic anterior listhesis. Mild reversal of normal cervical lordosis may be positional or related to muscle spasm. 16:00 Patient is positive for the flu and + for mono. 17:00: having persistent HUTCHINSON w/o visual deficits but + nausea. Given NS bolus 500cc IV x 1, Reglan 10mg IV x 1, and Topamax 25mg PO x 1. 17:30: persistent nausea despite reglan so given Zofran 4mg IV x 1. 18:00: re-evaluated with persistent HUTCHINSON but improved nausea, no visual changes or limb weakness. 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 Stable for d/c home to f/u with her neurologist re: pseudotumor cerebri. Scribe Attestation: Documented by Viktor Wild, acting as a scribe for Shalonda Mixon PA-C. Provider Scribe Attestation: All medical record entries made by the Scribe were at my direction and personally dictated by me. I have reviewed the chart and agree that the record accurately reflects my personal performance of the history, physical exam, medical decision making, and the department course for this patient. I have also personally directed, reviewed, and agree with the discharge instructions and disposition. - Laboratory Results Result Diagrams: 02/01/18 15:10 02/01/18 15:10 - ECG O2 Sat by Pulse Oximetry: 100 (RA) Pulse Ox Interpretation: Normal Disposition - Clinical Impression Clinical Impression: Influenza A, Infectious mononucleosis - Patient ED Disposition Is Patient to be Admitted: No Counseled Patient/Family Regarding: Studies Performed, Diagnosis, Need For Followup - Disposition Referrals: Jim Epps MD [Family Provider] - Disposition: Routine/Home Disposition Time: 20:15 Condition: STABLE Additional Instructions: Get lots of rest and drink lots of fluid. Avoid contact sports or abdominal trauma as the mono virus can enlarge your spleen. Take Ibuprofen and Tylenol for pain. Take Flonase for nasal congestion. F/u with your primary care doctor or neurologist for persistent HUTCHINSON if unrelieved by nasal spray. Prescriptions: Acetaminophen [Tylenol 325mg tab] 650 mg PO Q6 PRN 7 Days tab PRN Reason: Pain, Moderate (4-7) Fluticasone Propionate [Flonase] 1 spr NS BID #1 bottle Ibuprofen [Motrin Tab] 600 mg PO Q6 PRN 7 Days tab PRN Reason: Pain, Moderate (4-7) Instructions: Flu, Adult (DC), Mononucleosis (DC) Forms: [facility] (Romanian) Print Language: POLISH
--- NOTE | 2018-02-01 16:01 | CT ---
Date of service: 02/01/2018 PROCEDURE: CT Cervical Spine without contrast HISTORY: head and neck pain w/ fevers COMPARISON: None available. TECHNIQUE: Axial computed tomography images were obtained of the cervical spine without the use of intravenous contrast. Coronal and sagittal reformatted images were created and reviewed. Radiation dose: Total exam DLP = 265.74 mGy-cm. This CT exam was performed using one or more of the following dose reduction techniques: Automated exposure control, adjustment of the mA and/or kV according to patient size, and/or use of iterative reconstruction technique. FINDINGS: VERTEBRAE: There is mild reversal of normal cervical lordosis. There is normal alignment of the cervical broad-based. There is no acute fracture or traumatic anterior listhesis. The craniocervical junction is normal. The atlantoaxial joint is normal. DISCS/SPINAL CANAL/NEURAL FORAMINA: No significant central canal or neural foraminal stenosis. Discs heights are grossly preserved. PARASPINAL SOFT TISSUES: The paraspinous soft tissues are normal. No prevertebral soft tissue thickening. OTHER FINDINGS: None. IMPRESSION: No acute fracture or traumatic anterior listhesis. Mild reversal of normal cervical lordosis may be positional or related to muscle spasm.
[2018-02-01] MEDS ORDERED: Sodium Chloride 0.9% 500 ML IV ONE (17:05)
[2018-02-01 18:02] VITALS: RESP 20
[2018-02-01 20:03] VITALS: O2SAT 100
[2018-02-01 20:42] VITALS: BP 113/79; PULSE 80; TEMP 98.6
== END 2018-02-01 20:25 | disposition home or self-care (01) ==
LOC: H.ER 13:06
DX: J09.X2 Influenza due to identified novel influenza A virus with other respiratory manifestations (principal); B27.90 Infectious mononucleosis, unspecified without complication; Z88.0 Allergy status to penicillin
CPT/HCPCS: 70450; 71046; 72125; 80053; 85025; 86308; 87070; 87430; 87804; 96372; 96374; 96376; 99283; J1885; J2765; J7040

== ENCOUNTER 2018-06-01 16:22 | Emergency (ER) | payer SELFPAY ==
[2018-06-01 16:23] VITALS: BMI 29.8
[2018-06-01 16:29] VITALS: BP 140/82; PULSE 86; RESP 16; TEMP 98; O2SAT 98
[2018-06-01] MEDS ORDERED: Tdap Vaccine 0.5 ml Vial (10-64 yrs) IM ONE ×2 (16:35→16:51)
[2018-06-01] MEDS ORDERED: Lidocaine 2% Inj (20ml) INFIL ONE (16:36)
[2018-06-01] MEDS ORDERED: Lidocaine 1% Inj (20ml) IJ ONE (16:41)
[2018-06-01] MEDS ORDERED: Lidocaine 1% Inj (20ml) ONE (16:43)
--- NOTE | 2018-06-01 17:00 | ED PDOC ---
Upper Extremity Pain/Injury Time Seen by Provider: 06/01/18 16:36 Chief Complaint (Nursing): Abnormal Skin Integrity Chief Complaint (Provider): Abnormal Skin Integrity History Per: Patient History/Exam Limitations: no limitations Onset/Duration Of Symptoms: Mins (x15) Current Symptoms Are (Timing): Still Present Additional Complaint(s): Patient is a 37 y/o female with no significant PMHx who presents to the ED for evaluation of a cut to the left pinky 15 minutes prior to arrival. Patient reports she was cutting vegetables with a butter knife when her hand slipped and she cut her pinky. Patient states she is unable to move her pinky due to the pain and complains of numbness. Patient claims her Tetanus is not up to date. Of note, patient is left hand dominant. PCP: Dr. Jim Epps Past Medical History Reviewed: Historical Data, Nursing Documentation, Vital Signs Vital Signs: Last Vital Signs Temp 98.0 F 06/01/18 16:24 Pulse 86 06/01/18 16:24 Resp 16 06/01/18 16:24 BP 140/82 06/01/18 16:24 Pulse Ox 98 06/01/18 16:24 - Medical History PMH: Anxiety, Asthma (RARELY USES INHALER), Depression Denies: Diabetes, HIV, HTN, Hyperlipidemia, Migraine, Chronic Kidney Disease - Surgical History Surgical History: Tonsillectomy - Family History Family History: States: Diabetes, Hypertension - Immunization History Hx Tetanus Toxoid Vaccination: No - Home Medications Home Medications: Ambulatory Orders Medication Instructions Recorded ARIPiprazole [Abilify] 10 mg PO DAILY 11/10/17 Albuterol Sulfate [Ventolin Hfa] 2 puff IH Q6 PRN 11/10/17 Escitalopram [Lexapro] 20 mg PO DAILY 11/10/17 Temazepam [Restoril] 30 mg PO HS 11/10/17 Meloxicam 15 mg PO DAILY 14 Days #14 tablet 11/12/17 Montelukast [Singulair] 10 mg PO QPM 30 Days #30 tab 11/12/17 Prednisone [Deltasone] 40 mg PO Q12H 5 Days #10 tablet 11/12/17 Sulfamethoxazole/Trimethoprim 1 tab PO Q12H 7 Days #14 tab 11/12/17 [Bactrim DS 800 mg-160 mg] Acetaminophen [Tylenol 325mg tab] 650 mg PO Q6 PRN 7 Days tab 02/01/18 Fluticasone Propionate [Flonase] 1 spr NS BID #1 bottle 02/01/18 Ibuprofen [Motrin Tab] 600 mg PO Q6 PRN 7 Days tab 02/01/18 Clindamycin [Cleocin] 300 mg PO Q6 #20 cap 06/01/18 Ibuprofen [Motrin] 600 mg PO Q8 PRN #21 tab 06/01/18 - Allergies Allergies/Adverse Reactions: Allergies Allergy/AdvReac Type Severity Reaction Status Date / Time erythromycin base Allergy Severe ANAPHYLAXIS Verified 06/01/18 16:26 amoxicillin [From Augmentin] Allergy URTICARIA Verified 06/01/18 16:26 azithromycin [From Zithromax] Allergy RASH Verified 06/01/18 16:30 clavulanic acid Allergy URTICARIA Verified 06/01/18 16:26 [From Augmentin] eggplant Allergy RASH Uncoded 06/01/18 16:26 Review of Systems ROS Statement: Except As Marked, All Systems Reviewed And Found Negative Musculoskeletal: Positive for: Hand Pain (left pinky due to cut; unable to move digit) Neurological: Positive for: Numbness (left pinky) Physical Exam - Reviewed Nursing Documentation Reviewed: Yes Vital Signs Reviewed: Yes - Physical Exam Appears: Positive for: In Acute Distress (painful) Head Exam: Positive for: ATRAUMATIC, NORMAL INSPECTION, NORMOCEPHALIC Skin: Positive for: Normal Color, Warm, DRY Eye Exam: Positive for: EOMI, Normal appearance, PERRL Neck: Positive for: Normal, Painless ROM, Supple Cardiovascular/Chest: Negative for: Regular Rate, Rhythm, Murmur Respiratory: Negative for: Normal Breath Sounds, Respiratory Distress Extremity: Positive for: Other (2 cm lateration to pinky phalaynx on left hand; active bleeding). Negative for: Normal ROM (limited ROM of left pinky digit secondary to pain), Pedal Edema, Deformity Neurological/Psych: Positive for: Alert, Oriented (x3) - ECG O2 Sat by Pulse Oximetry: 98 (RA) Pulse Ox Interpretation: Normal - Progress ED Course And Treament: TDAP 0.5 ML IM X 1 DOSE Medical Decision Making Medical Decision Making: Time: 1635 Impression: Laceration to Left Pinky Plan: Adacel 0.5 ml IM Lidocaine 1 ml IJ Tylenol 975 mg PO Scribe Attestation: Documented by Gunnar Myres, acting as a scribe for Truman Shelton PA-C. Provider Scribe Attestation: All medical record entries made by the Scribe were at my direction and personally dictated by me. I have reviewed the chart and agree that the record accurately reflects my personal performance of the history, physical exam, medical decision making, and the department course for this patient. I have also personally directed, reviewed, and agree with the discharge instructions and disposition. Disposition - Clinical Impression Clinical Impression: Finger laceration - Patient ED Disposition Is Patient to be Admitted: No - Disposition Referrals: Sami Mortensen MD [Medical Doctor] - Disposition: Routine/Home Disposition Time: 18:21 Condition: FAIR Additional Instructions: RETURN IN 7 TO 10 DAYS FOR REMOVAL OF SUTURES. Prescriptions: Clindamycin [Cleocin] 300 mg PO Q6 #20 cap Ibuprofen [Motrin] 600 mg PO Q8 PRN #21 tab PRN Reason: Pain, Moderate (4-7) Instructions: Laceration Repair With Stitches (DC) Procedure: Wound Repair - Time Performed Time Performed: 18:20 - Time Out Time Out: Site verified - Consent Obtained Consent obtained: Verbal - Performed by Performed by: Mid-level Provider - Indications Indication(s):: Laceration - Location Location:: Left, Hand Finger:: Little Shape:: Curvilinear Dimensions Length cm: 2.0cm Depth:: Epidermis - Anesthetic Technique Anesthetic Technique: Regional block Local/Regional Anesthetic:: Lidocaine 1% - Debris Debris:: None - Irrigated Irrigated with ml of normal saline: 250ML - Complexity Complexity:: Simple (one layer) - Wound repair method Sutures:: # (SIX), Size (5-0), Type (PROLENE), Technique (INTERRUPTED) - Muscle repiar layer closed with Muscle repair layer closed with:: Abx ointment applied, Dressing applied - Complications Complications: GIVEN FINGER SPLINT
== END 2018-06-01 18:30 | disposition home or self-care (01) ==
LOC: H.ER 16:22
DX: S61.217A Laceration without foreign body of left little finger without damage to nail, initial encounter (principal); W26.0XXA Contact with knife, initial encounter; Y92.89 Other specified places as the place of occurrence of the external cause; Z88.0 Allergy status to penicillin; Z88.1 Allergy status to other antibiotic agents